=== PATIENT | female | born 1940 | race Caucasian/White ===

== ENCOUNTER → 2017-03-11 | Outpatient (CLI) | payer MEDICARE, OTHER ==
[2016-02-01 17:23] VITALS: BP 132/60
--- NOTE | 2017-03-11 15:11 | RAD ---
Indication right flank pain. Grayscale imaging targeted to the kidneys was performed. No similar imaging is available. The urinary bladder appeared grossly normal. There was no significant post void residual. The mid and distal abdominal aorta appeared normal. The more proximal abdominal aorta was obscured. The visualized inferior vena cava appeared unremarkable. The right kidney measures 8.6 x 3.6 x 4.1 cm. Other than being somewhat small the kidney appears unremarkable. No hydronephrosis or mass is seen. The left kidney measures 10.6 x 6.3 x 4.4 cm. No hydronephrosis or mass is seen. IMPRESSION: Somewhat small right kidney. No mass or hydronephrosis is seen associated with either kidney
== END | disposition home or self-care (01) ==
LOC: US 14:23
PROVIDERS: ATTEND Nurse Practitioner
DX: R10.9 Unspecified abdominal pain (principal)
CPT/HCPCS: 76770

== ENCOUNTER → 2018-04-01 | Outpatient (CLI) | payer MEDICARE, OTHER | END | disposition home or self-care (01) | LOC: KCIC MRI 09:04 | DX: M47.896 Other spondylosis, lumbar region (principal); M48.061 Spinal stenosis, lumbar region without neurogenic claudication; R26.2 Difficulty in walking, not elsewhere classified | CPT/HCPCS: 72148 ==

== ENCOUNTER → 2018-04-15 | Outpatient (CLI) | payer MEDICARE, OTHER | END | disposition home or self-care (01) | LOC: PNCL 07:12 | DX: M79.605 Pain in left leg (principal); M79.604 Pain in right leg; M54.5 Low back pain; I10 Essential (primary) hypertension; E11.9 Type 2 diabetes mellitus without complications; M19.90 Unspecified osteoarthritis, unspecified site; Z85.3 Personal history of malignant neoplasm of breast; Z90.10 Acquired absence of unspecified breast and nipple | CPT/HCPCS: G0463 ==

== ENCOUNTER → 2018-04-20 | Outpatient (CLI) | payer MEDICARE, OTHER ==
[2016-02-01 17:23] VITALS: BP 132/60
[~2018-04-20] MED LIST: ASPI81TA50 PO; ATOR10TA60 PO; BUPR300T4 PO; CA C1TAB38 PO; DULO60CA6 PO; GLIP5TAB10 PO; HYDR-2762 PO; LEVO88TA4 PO; LOSA100T6 PO; METF10003 PO; METO-247 PO; PRAM0.255 PO; SITA100T PO; TRAZ-85 PO; VITA150T PO
--- NOTE | 2018-04-20 17:38 | RAD ---
EXAM: Supine AP and lateral views of the Lumbar spine with upright flexion and extension views DATE: 04/20/2018 11:38 AM CLINICAL HISTORY: Spondylolisthesis, BACK PAIN COMPARISON: MRI 04/01/2019 FINDINGS: There are 5 nonrib-bearing lumbar type vertebral bodies. Small ribs are seen at T12. Mild L5-S1 intervertebral disc height loss.. Vertebral body heights are preserved. Multilevel endplate osteophytes are seen. Moderate facet degenerative changes are seen at L3-4 and below. Mild straightening of the normal lumbar lordosis. There is approximately 1.1 cm anterolisthesis of L4 on L5 on the flexion images and 8 mm anterolisthesis of L4 on L5 on the extension images. Normal bone density. Atherosclerotic vascular calcifications are seen. IMPRESSION: 1. Anterolisthesis of L4 on L5, measuring 1.1 cm on the flexion images and 8 mm on the extension images. 2. Multilevel degenerative changes of the lumbar spine as above Electronically signed by: Red Lomeli MD (04/20/2018 5:34 PM) [facility]
== END | disposition home or self-care (01) ==
LOC: RAD 11:13
PROVIDERS: ATTEND Neurological Surgery
DX: M47.896 Other spondylosis, lumbar region (principal); M43.16 Spondylolisthesis, lumbar region; I25.10 Atherosclerotic heart disease of native coronary artery without angina pectoris; M25.78 Osteophyte, vertebrae; M40.46 Postural lordosis, lumbar region; I10 Essential (primary) hypertension; E11.9 Type 2 diabetes mellitus without complications
CPT/HCPCS: 72110

== ENCOUNTER 2018-09-10 23:44 | Emergency (ER) | payer MEDICARE ==
[~2018-09-10] VITALS: Ht 152.4 cm; Wt 97.1 kg
[~2018-09-10 23:44] MED LIST changes: +FURO-69 PO; -HYDR-2762 PO; +HYDR-2765 PO; +LOSA-73 PO; +LOSA100T14 PO; -LOSA100T6 PO; -METF10003 PO; +METF10007 PO; +METO-269 PO
--- NOTE | 2018-09-11 00:13 | PHYS DOC ---
Past Medical History Past Medical History: Arthritis, Cancer, Diabetes-Type II, High Cholesterol, Hypertension, Other Additional Past Medical Histor: SPINAL STENOSIS, LYMPHOMER, RESTLESS LEG SYNDROME. BREAST CA Past Surgical History: Angioplasty, Appendectomy, Hysterectomy, Tonsillectomy, Other Additional Past Surgical Histo: R MASECTOMY, LUMPECTOMY, FIBROIDECTOMY Alcohol Use: None Drug Use: None Adult General Chief Complaint Chief Complaint: HIP PAIN HPI HPI Patient is a 78 year old female who presents with left hip pain. This is been present for the past 3-4 days. There is been no new trauma. Patient did receive cardiac catheter and stent on September 07 with a right femoral approach. Patient reports that the right side is doing fine. She is concerned that by increased weightbearing on the left due to protecting the right side, that this may have caused the issue. Patient is able to walk. Denies any numbness or tingling. Reports that she does get some relief with her hydrocodone. Patient was seen by her primary care physician as well as in urgent care tonight and they "did nothing." Weightbearing does seem to make the discomfort worse. Pain is moderate in intensity.[] Review of Systems Review of Systems Constitutional: Denies fever or chills [] Eyes: Denies change in visual acuity, redness, or eye pain [] HENT: Denies nasal congestion or sore throat [] Respiratory: Denies cough or shortness of breath [] Cardiovascular: No chest pain or palpitations[] GI: Denies abdominal pain, nausea, vomiting, bloody stools or diarrhea [] : Denies dysuria or hematuria [] Musculoskeletal: See history of present illness[] Integument: Denies rash or skin lesions [] Neurologic: Denies headache, focal weakness or sensory changes [] Endocrine: Denies polyuria or polydipsia [] All other systems were reviewed and found to be within normal limits, except as documented in this note. Allergies Allergies Allergies Coded Allergies Type Severity Reaction Last Updated Verified BHASKAR Inhibitors Allergy Intermediate 08/29/18 Yes amlodipine Allergy Intermediate 08/29/18 Yes rosuvastatin Allergy Intermediate 08/29/18 Yes Physical Exam Physical Exam Constitutional: Well developed, well nourished, no acute distress, non-toxic appearance. [] HENT: Normocephalic, atraumatic, bilateral external ears normal, oropharynx moist, no oral exudates, nose normal. [] Eyes: PERRLA, EOMI, conjunctiva normal, no discharge. [] Neck: Normal range of motion, no tenderness, supple, no stridor. [] Cardiovascular:Heart rate regular rhythm, no murmur [] Lungs & Thorax: Bilateral breath sounds clear to auscultation [] Abdomen: Bowel sounds normal, soft, no tenderness, no masses, no pulsatile masses. [] Skin: Warm, dry, no erythema, no rash. [] Back: No tenderness, no CVA tenderness. [] Extremities: Diffuse tenderness around the LEFT hip. Symmetric Active range of motion. No knee tenderness. Patient is distal neurovascularly intact. Pelvis is stable in 3 plains. no cyanosis, no clubbing, ROM intact, no edema. [] Neurologic: Alert and oriented X 3, normal motor function, normal sensory function, no focal deficits noted. [] Psychologic: Affect normal, judgement normal, mood normal. [] Current Patient Data Vital Signs Vital Signs Date Time Temp Pulse Resp B/P (MAP) Pulse Ox O2 Delivery O2 Flow Rate FiO2 09/11/18 00:09 99.4 103 24 142/74 (96) 93 Room Air 99.4 EKG EKG [] Radiology/Procedures Radiology/Procedures Left hip and pelvis x-ray shows no acute fracture or dislocation[] Course & Med Decision Making Course & Med Decision Making Pertinent Labs and Imaging studies reviewed. (See chart for details) ED course: Patient arrived, was placed in bed, tolerated exam well. Patient was transported to and from x-ray without any complications. After the return of the imaging findings, these were discussed with patient and family who voiced understanding. All questions were answered. Medical decision making: There is no evidence of fracture dislocation. No evidence of a DVT. Given that patient is currently on a blood thinning medication cannot add NSAIDs to her regimen. We will provide a short course of short-term narcotic pain medicine for this acute issue.[] Dragon Disclaimer Dragon Disclaimer This electronic medical record was generated, in whole or in part, using a voice recognition dictation system. Departure Departure Impression: Primary Impression: Left hip pain Disposition: 01 HOME, SELF-CARE Condition: GOOD Referrals: JENNA MARLOW MD (PCP) Follow-up in 2 days Patient Instructions: Hip Pain Additional Instructions: Follow-up with your regular doctor in 2 days. Apply warm compresses for 15 minutes at a time, at least 4 times a day. Return to the ER if worsening pain or any other concerns. Scripts Morphine Sulfate (MORPHINE SULFATE) 15 Mg Tablet 1 TAB PO BID, #20 TAB Prov: JIMBO ROSENTHAL DO 09/11/18 JIMBO ROSENTHAL DO Sep 11, 2018 00:13
[2018-09-11 01:10] VITALS: BP 152/65
[2018-09-11] MEDS ORDERED: MORP15TA PO (01:14)
--- NOTE | 2018-09-11 08:40 | RAD ---
HIP LEFT 2V WITH PELVIS History: LEFT HIP PAIN, SINCE 09/07/2018, NKI. Comparison: None are available Subchondral sclerosis at the pubic symphysis, greater on the right, with mild degenerative changes at the joint. Joint spaces at the right and left hip appear intact. There is no evidence of an acute fracture or aggressive bone destruction. Mild to moderate retained stool in the visualized colon. IMPRESSION: 1. Changes at the pubic symphysis suggest osteitis pubis or degenerative change. 2. No acute radiographic findings. Electronically signed by: Mahesh Hodgson MD (09/11/2018 8:35 AM) [facility]
== END 2018-09-11 01:25 | disposition home or self-care (01) ==
LOC: ER 23:44
DX: M25.552 Pain in left hip (principal); E11.9 Type 2 diabetes mellitus without complications; E78.00 Pure hypercholesterolemia, unspecified; I10 Essential (primary) hypertension; Z95.5 Presence of coronary angioplasty implant and graft; Z90.89 Acquired absence of other organs; Z90.710 Acquired absence of both cervix and uterus; Z88.8 Allergy status to other drugs, medicaments and biological substances
CPT/HCPCS: 73502; 99283

== ENCOUNTER → 2019-04-12 | Outpatient (CLI) | payer MEDICARE, OTHER ==
[~2019-04-12] MED LIST changes: +MORP15TA PO; +TRAZ-118 PO; -TRAZ-85 PO
--- NOTE | 2019-04-12 10:23 | CARD ---
MR#: [id number] Date of Study: 04/12/2019 Ordering Physician: CORI DINERO, Referring Physician: CORI DINERO, Tech: Marce Bobby VLADIMIR APPROVED REPORT EXAM: Two-dimensional and M-mode echocardiogram with Doppler and color Doppler. Other Information Quality : Good INDICATION Cardiac Disease: CAD 2D DIMENSIONS RVDd2.5 (2.9-3.5cm)Left Atrium(2D)3.7 (1.6-4.0cm) IVSd1.3 (0.7-1.1cm)Aortic Root(2D)2.3 (2.0-3.7cm) LVDd3.4 (3.9-5.9cm)LVOT Diameter2.1 (1.8-2.4cm) PWd1.0 (0.7-1.1cm)LVDs2.5 (2.5-4.0cm) FS (%) 27.7 %SV26.4 ml LVEF(%)54.8 (>50%) Aortic Valve AoV Peak Rah.136.8cm/sAoV VTI29.3cm AO Peak GR.7.5mmHgLVOT Peak Rah.85.7cm/s AO Mean GR.4mmHgAVA (VMAX)2.23cm2 MARA (VTI)2.70cm2 Mitral Valve MV E Iskcovvo97.5cm/sMV DECEL [id number] MV A Wwqfncfr890.4cm/sE/A Ratio0.6 Tricuspid Valve TR P. Ddeygzcf520jn/sRAP ZKBYILAH1hrRk TR Peak Gr.51pdIxDXNU30tpLs Pulmonary Vein S1 Ueoysdhs58.0cm/sD2 Gdvdbcrp07.4cm/s LEFT VENTRICLE The left ventricle is normal size. There is mild asymmetric septal hypertrophy. The left ventricular systolic function is normal and the ejection fraction is within normal range. The Ejection Fraction i s 55-60%. There is normal LV segmental wall motion. Transmitral Doppler flow pattern is Grade I-abnor mal relaxation pattern. RIGHT VENTRICLE The right ventricle is normal size. The right ventricular systolic function is normal. ATRIA The left atrium size is normal. The right atrium size is normal. The interatrial septum is intact wit h no evidence for an atrial septal defect or patent foramen ovale as noted on 2-D or Doppler imaging. AORTIC VALVE The aortic valve is calcified but opens well. Doppler and Color Flow revealed no significant aortic r egurgitation. There is no significant aortic valvular stenosis. MITRAL VALVE The mitral valve is calcified but opens well. Mitral annular calcification is mild. There is no evide nce of mitral valve prolapse. There is no mitral valve stenosis. Doppler and Color Flow revealed no m itral valve regurgitation noted. TRICUSPID VALVE The tricuspid valve is normal in structure and function. Doppler and Color Flow revealed physiologica l tricuspid regurgitation. The PA pressure was estimated at 22 mmHg. There is no tricuspid valve sten osis. PULMONIC VALVE The pulmonic valve is not well visualized. Doppler and Color Flow revealed mild pulmonic valvular reg urgitation. There is no pulmonic valvular stenosis. GREAT VESSELS The aortic root is normal in size. The ascending aorta is normal in size. The IVC is normal in size a nd collapses >50% with inspiration. PERICARDIAL EFFUSION There is no evidence of significant pericardial effusion. Critical Notification Critical Value: No <Conclusion> The left ventricular systolic function is normal and the ejection fraction is within normal range. Th e Ejection Fraction is 55-60%. There is normal LV segmental wall motion. Signed by : Cori Dinero, Electronically Approved : 04/12/2019 10:22:36
== END | disposition home or self-care (01) ==
LOC: ECHO 08:57
PROVIDERS: ATTEND Internal Medicine Cardiovascular Disease
DX: I08.8 Other rheumatic multiple valve diseases (principal); I25.10 Atherosclerotic heart disease of native coronary artery without angina pectoris
CPT/HCPCS: 93306

== ENCOUNTER → 2020-02-24 | Outpatient (CLI) | payer MEDICARE, OTHER ==
[~2020-02-24] MED LIST changes: -BUPR300T4 PO; +BUPR300T92 PO
--- NOTE | 2020-02-24 11:16 | CARD ---
MR#: [id number] Date of Study: 02/24/2020 Ordering Physician: CORI STEVENS, Referring Physician: CORI STEVENS, Tech: Penelope Yates APPROVED REPORT EXAM: Two-dimensional and M-mode echocardiogram with Doppler and color Doppler. Other Information Quality : AverageHR: 75bpm Technically limited study due to body habitus. INDICATION Cardiac Disease: CAD RISK FACTORS Hypertension Hyperlipidemia Diabetes 2D DIMENSIONS RVDd2.8 (2.9-3.5cm)Left Atrium(2D)3.7 (1.6-4.0cm) IVSd1.1 (0.7-1.1cm)LVDd4.0 (3.9-5.9cm) LVOT Diameter2.0 (1.8-2.4cm)PWd0.9 (0.7-1.1cm) LVDs2.7 (2.5-4.0cm)FS (%) 31.4 % SV41.4 mlLVEF(%)59.9 (>50%) Aortic Valve AoV Peak Rah.127.1cm/sAoV VTI28.9cm AO Peak GR.6.5mmHgLVOT Peak Rah.84.6cm/s LVOT VTI 20.53cmAO Mean GR.4mmHg MARA (VMAX)1.34ez7LZM (VTI)2.28cm2 Mitral Valve MV E Vyemrdbx00.5cm/sMV DECEL KDPP213oj MV A Klqzucyh11.4cm/sMV E Mean Gr.2mmHg MV JGN66teR/A Ratio0.7 MVA (PHT)3.39cm2 TDI E/Lateral E'7.6E/Medial E'8.3 Pulmonary Valve PV Peak Nhastwpc85.0cm/sPV Peak Grad.4mmHg Tricuspid Valve TR P. Yoccoowg268ty/sRAP RJRGWUDF6ncOq TR Peak Gr.93ljEaNNLJ42bnPo Pulmonary Vein S1 Wfturgjz55.8cm/sD2 Qcwuhvfs73.6cm/s PVa gkextcga340psqb LEFT VENTRICLE The left ventricle is normal size. There is normal left ventricular wall thickness. The left ventricu lar systolic function is normal and the ejection fraction is within normal range. The Ejection Fracti on is 55%. There is normal LV segmental wall motion. Transmitral Doppler flow pattern is Grade I-abno rmal relaxation pattern. RIGHT VENTRICLE The right ventricle is normal size. There is normal right ventricular wall thickness. The right ventr icular systolic function is normal. ATRIA The left atrium size is normal. The right atrium size is normal. The interatrial septum is intact wit h no evidence for an atrial septal defect or patent foramen ovale as noted on 2-D or Doppler imaging. AORTIC VALVE The aortic valve is normal in structure and function. Cannot rule out prior bioprosthetic aortic valv e. Doppler and Color Flow revealed no significant aortic regurgitation. There is no significant aorti c valvular stenosis. MITRAL VALVE The mitral valve is normal in structure and function. There is no evidence of mitral valve prolapse. There is no mitral valve stenosis. Doppler and Color-flow revealed trace mitral regurgitation. TRICUSPID VALVE The tricuspid valve is normal in structure and function. Doppler and Color Flow revealed trace tricus pid regurgitation with an estimated PAP of 39 mmHg. There is no tricuspid valve stenosis. PULMONIC VALVE The pulmonary valve is normal in structure and function. Doppler and Color Flow revealed trace to mil d pulmonic valvular regurgitation. There is no pulmonic valvular stenosis. GREAT VESSELS The aortic root is normal in size. The ascending aorta is normal in size. The IVC is normal in size a nd collapses >50% with inspiration. PERICARDIAL EFFUSION There is no evidence of significant pericardial effusion. Critical Notification Critical Value: No <Conclusion> The left ventricular systolic function is normal and the ejection fraction is within normal range. Th e Ejection Fraction is 55%. There is normal LV segmental wall motion. The aortic valve is normal in structure and function. Cannot rule out prior bioprosthetic aortic valv e. Doppler and Color Flow revealed trace tricuspid regurgitation with an estimated PAP of 39 mmHg. Signed by : Cori Stevens, Electronically Approved : 02/24/2020 11:15:25
== END | disposition home or self-care (01) ==
LOC: ECHO 07:49
PROVIDERS: ATTEND Internal Medicine Cardiovascular Disease
DX: I37.1 Nonrheumatic pulmonary valve insufficiency (principal); I25.10 Atherosclerotic heart disease of native coronary artery without angina pectoris
CPT/HCPCS: 93306

== ENCOUNTER 2020-09-07 22:17 | Inpatient (IN) | payer MEDICARE, OTHER ==
[~2020-09-07] VITALS: Ht 152.4 cm; Wt 94.1 kg
[2020-09-07] MEDS ORDERED: IV NORMAL SALINE 1000ML BAG 1,000 ML IV ONE (23:45)
[2020-09-07] MEDS ORDERED: ASPIRIN ENTERIC COATED 325 MG TABLET.DR. PO ONE (23:45)
[2020-09-08] VITALS (7 sets, daily range): BP systolic 116–176; BP diastolic 65–93
--- NOTE | 2020-09-08 00:57 | PHYS DOC ---
Past Medical History Past Medical History: Arthritis, Cancer, Diabetes-Type II, High Cholesterol, Hypertension, Hypothyroid, Other Additional Past Medical Histor: SPINAL STENOSIS, LYMPHOMER, RESTLESS LEG SYNDROME. BREAST CA Past Surgical History: Angioplasty, Appendectomy, Hysterectomy, Tonsillectomy, Other Additional Past Surgical Histo: R MASECTOMY, LUMPECTOMY, FIBROIDECTOMY Past Surgical History Partial thyroidectomy Smoking Status: Never Smoker Alcohol Use: None Drug Use: None General Adult EDM: Chief Complaint: SHORTNESS OF BREATH HPI: HPI: 80-year-old female presents with report of shortness of breath that started at 1400 today while organizing things in her house. Patient denies any fever or chills. Denies cough. Denies nasal congestion. Denies known sick contacts. Denies known exposure to COVID-19. Patient does report some palpitations. Patient does report history of partial thyroidectomy. Reports has been compliant with taking her thyroid medication. Review of Systems: Review of Systems: Constitutional: Denies fever or chills Eyes: Denies redness or eye pain HENT: Denies nasal congestion or sore throat Respiratory: Denies cough; reports shortness of breath Cardiovascular: Denies chest pain; reports palpitations GI: Denies abdominal pain, nausea, or vomiting : Denies dysuria or hematuria Musculoskeletal: Denies back pain or joint pain Integument: Denies rash or skin lesions Neurologic: Denies headache, focal weakness or sensory changes Complete systems were reviewed and found to be within normal limits, except as documented in this note. Current Medications: Current Medications Medications (Trade) Dose Ordered Sig/Kevin Start Time Stop Time Status Last Admin Dose Admin Aspirin (Ecotrin) 325 mg 1X ONCE 09/07/20 23:45 09/07/20 23:46 DC 09/08/20 00:40 325 MG Sodium Chloride 1,000 ml @ 1,000 mls/hr 1X ONCE 09/07/20 23:45 09/08/20 00:44 DC 09/08/20 00:40 1,000 MLS/HR Allergies: Allergies: Allergies Coded Allergies Type Severity Reaction Last Updated Verified BHASKAR Inhibitors Allergy Intermediate 08/29/18 Yes amlodipine Allergy Intermediate 08/29/18 Yes rosuvastatin Allergy Intermediate 08/29/18 Yes Physical Exam: PE: Constitutional: Well developed, well nourished, no acute distress, non-toxic appearance HENT: Normocephalic, atraumatic Eyes: Conjunctiva normal, no discharge Neck: Normal range of motion, no tenderness, supple Lungs & Thorax: No respiratory distress, equal chest rise and fall Cardiology: Tachycardia, bilateral radial pulses +2 Abdomen: Soft, no tenderness Skin: Warm, dry, no erythema, no rash Extremities: No tenderness, ROM intact, no edema Neurologic: Alert and oriented X 3, normal motor function, normal sensory function, no focal deficits noted Psychologic: Affect anxious, judgment normal Current Patient Data: Vital Signs: Vital Signs Date Time Temp Pulse Resp B/P (MAP) Pulse Ox O2 Delivery O2 Flow Rate FiO2 09/07/20 23:00 98.3 122 20 118/78 (91) 96 Room Air 98.3 EKG: EKG: @0045 Sinus tachycardia at 122bpm, NO ST elevation, QRS 92ms, QT/QTc 316/451ms Radiology/Procedures: Radiology/Procedures: PROCEDURE: CT ANGIOGRAPHY CHEST RS Compliance Statement: One or more of the following individualized dose reduction techniques were utilized for this examination: 1. Automated exposure control 2. Adjustment of the mA and/or kV according to patient size 3. Use of iterative reconstruction technique CTA CHEST 09/08/2020 2:35 AM Indication: Shortness of air, elevated d-dimer COMPARISON: None available. TECHNIQUE: Multiple axial CT images of the chest were obtained after intravenous administration of 100 cc Omnipaque 350. Coronal and sagittal reformats are provided. Maximum intensity projection images are provided. FINDINGS: Right thyroid gland is normal. The thyroid gland is either diminutive or absent. Precarinal lymph node measures 9 mm. No pathologically enlarged thoracic lymph nodes are identified. Heart size is borderline enlarged. Mild three-vessel coronary artery vascular calcifications are present. Evaluation of the pulmonary arterial system is limited by respiratory motion. This symptoms evaluation of the right upper lobe pulmonary arteries. The central pulmonary artery, main pulmonary arteries and bilateral lower lobe pulmonary arteries are widely patent. Lingula and left upper lobe pulmonary arteries are patent without filling defects to suggest acute or chronic pulmonary emboli. Respiratory motion limits evaluation of the lungs. There is mild pulmonary vascular congestion. No definite solid noncalcified pulmonary nodule. No pleural effusions or pneumothorax. Mild gallbladder wall calcification is identified. Simple cyst identified in the super pole left kidney measuring 9 mm. No suspicious osseous abnormality. IMPRESSION: 1. No evidence for acute or chronic pulmonary embolism. Evaluation of the right upper lobe pulmonary arteries limited by motion artifact. 2. Evaluation of the lungs limited by motion. There is mild pulmonary vascular congestion and mild cardiomegaly as may be seen with congestive heart failure. No focal airspace consolidation. Electronically signed by: Ingrid Aviles MD (09/08/2020 3:10 AM) [facility] Course & Med Decision Making: Course & Med Decision Making Pertinent Labs and Imaging studies reviewed. (See chart for details) Patient presents with shortness of breath that started today at 1400. Does appear to have some anxiety component. Anxiety addressed. IV fluid hydration given. Labs obtained and posted to chart. CTA chest without signs of PE. Cannot exclude COVID-19. Covid precautions in place. Covid testing pending. Patient did continue to be tachycardic up into the 120s to 130s despite IV fluid hydration. Lactic acid significantly elevated. Patient requiring admission for further evaluation and treatment. Discussed with Dr. Gutiérrez (hospitalist) who is in agreement with admission. Discussed findings and plan with patient, who acknowledges understanding and agreement. COVID-19 CRITERIA: The patient was evaluated during the global COVID-19 pandemic, and that diagnosis was suspected/considered upon their initial presentation. Their evaluation, treatment and testing was consistent with current guidelines for patients who present with complaints or symptoms that may be related to COVID-19. Dragon Disclaimer: Seferino Disclaimer: This electronic medical record was generated, in whole or in part, using a voice recognition dictation system. Departure Departure Impression: Primary Impression: Shortness of breath Additional Impressions: Lactic acidosis Sinus tachycardia Suspected 2019 novel coronavirus infection Disposition: ADMITTED INPT THIS HOSP Admitting Physician: LALA (Brock) Condition: STABLE Referrals: JENNA MARLOW MD (PCP) COVID-19 Assessment: COVID-19 Patient Risks: Age 65 or older: Yes Sign of co-morbidity: Yes Exp to person + for COVID: No Exp to PUI: No Travel from affected area: No Lower respiratory symptoms: Yes Fever: No Other: Yes PPE Use: Full PPE with N95 mask or PAPR: Yes Critical Care Time Critical care time was 30 minutes which includes time at bedside, spent in discussion of patient's care with specialists and/or family members, with interpretation of laboratory and/or radiological studies and is exclusive of procedures. LIO MORA DO Sep 08, 2020 00:57
[2020-09-08 00:58] LABS: BASO # 0.1 x10^3/uL (0.0-0.2); BASO % 1 % (0-3); EOS # 0.3 x10^3/uL (0.0-0.7); EOS % 3 % (0-3); HEMATOCRIT 40.2 % (36.0-47.0); HEMOGLOBIN 13.5 g/dL (12.0-15.5); LYMPH # 2.1 x10^3/uL (1.0-4.8); LYMPH % 26 % (24-48); MEAN CORPUSCULAR HEMOGLOBIN 33 pg (25-35); MEAN CORPUSCULAR HGB CONC 34 g/dL (31-37); MEAN CORPUSCULAR VOLUME 97 fL (79-100); MONO # 0.7 x10^3/uL (0.0-1.1); MONO % 9 % (0-9); NEUT % 61 % (31-73); PLATELET COUNT 245 x10^3/uL (140-400); RED BLOOD COUNT 4.16 x10^6/uL (3.50-5.40); RED CELL DISTRIBUTION WIDTH 13.3 % (11.5-14.5); WHITE BLOOD COUNT 8.2 x10^3/uL (4.0-11.0)
[2020-09-08 01:13] LABS: CALCIUM 9.5 mg/dL (8.5-10.1); CREATININE 1.2 mg/dL (0.6-1.0); GFR 43.3; POTASSIUM 4.2 mmol/L (3.5-5.1)
[2020-09-08 01:19] LABS: ALBUMIN 3.7 g/dL (3.4-5.0); MAGNESIUM 1.9 mg/dL (1.8-2.4); TOTAL BILIRUBIN 0.4 mg/dL (0.2-1.0); TOTAL PROTEIN 7.4 g/dL (6.4-8.2)
[2020-09-08 01:30] LABS: FREE T4 0.86 ng/dL (0.76-1.46); THYROID STIM HORMONE (TSH) 5.754 uIU/mL (0.358-3.74)
[2020-09-08 02:30] LABS: BILIRUBIN,URINE NEGATIVE (NEG); CLARITY,URINE CLEAR; COLOR,URINE YELLOW; NITRITE,URINE NEGATIVE (NEG); PH,URINE 6.5 (<5.0-8.0); PROTEIN,URINE NEGATIVE (NEG-TRACE); UROBILINOGEN,URINE 0.2 mg/dL (0.2 mg/dL)
[2020-09-08] MEDS ORDERED: IV NORMAL SALINE 1000ML BAG 1,000 ML IV ONE ×2 (02:30→04:00)
[2020-09-08] MEDS ORDERED: CONTRAST GIVEN. MC PRN (02:45)
[2020-09-08 02:56] LABS: BACTERIA,URINE FEW /HPF (0-FEW)
[2020-09-08] MEDS ORDERED: IOHEXOL 350 MG/ML 100 ML VIAL. IV ONE (03:00)
--- NOTE | 2020-09-08 03:02 | EKG ---
[facility] [address] [place] [address] Test Date: 2020-09-08 Test Time: 00:45:59 Pat Name: GALDINO FOREMAN Department: Room: Gender: F Greige Mender: : 1940 Requested By: LIO MORA Order Number: [id number] Reading MD: Fazal Stevens MD Measurements Intervals [place] Rate: 122 P: -8 SC: 152 QRS: -24 QRSD: 92 T: 48 QT: 316 QTc: 451 Interpretive Statements SINUS TACHYCARDIA CONSIDER PRIOR INFERIOR INFARCT. Electronically Signed On 09-11-2020 6:55:04 GANTRY RIGGER by Fazal Stevens MD
--- NOTE | 2020-09-08 03:12 | RAD ---
PQRS Compliance Statement: One or more of the following individualized dose reduction techniques were utilized for this examinat ion: 1. Automated exposure control 2. Adjustment of the mA and/or kV according to patient size 3. Use of iterative reconstruction technique CTA CHEST 09/08/2020 2:35 AM Indication: Shortness of air, elevated d-dimer COMPARISON: None available. TECHNIQUE: Multiple axial CT images of the chest were obtained after intravenous administration of 10 0 cc Omnipaque 350. Coronal and sagittal reformats are provided. Maximum intensity projection images are provided. FINDINGS: Right thyroid gland is normal. The thyroid gland is either diminutive or absent. Precarinal lymph nod e measures 9 mm. No pathologically enlarged thoracic lymph nodes are identified. Heart size is border line enlarged. Mild three-vessel coronary artery vascular calcifications are present. Evaluation of t he pulmonary arterial system is limited by respiratory motion. This symptoms evaluation of the right upper lobe pulmonary arteries. The central pulmonary artery, main pulmonary arteries and bilateral lo wer lobe pulmonary arteries are widely patent. Lingula and left upper lobe pulmonary arteries are pat ent without filling defects to suggest acute or chronic pulmonary emboli. Respiratory motion limits e valuation of the lungs. There is mild pulmonary vascular congestion. No definite solid noncalcified p ulmonary nodule. No pleural effusions or pneumothorax. Mild gallbladder wall calcification is identif ied. Simple cyst identified in the super pole left kidney measuring 9 mm. No suspicious osseous abnor mality. IMPRESSION: 1. No evidence for acute or chronic pulmonary embolism. Evaluation of the right upper lobe pulmonary arteries limited by motion artifact. 2. Evaluation of the lungs limited by motion. There is mild pulmonary vascular congestion and mild ca rdiomegaly as may be seen with congestive heart failure. No focal airspace consolidation. Electronically signed by: Ingrid Aviles MD (09/08/2020 3:10 AM) [facility]
[2020-09-08] MEDS ORDERED: DEXTROSE 50% 25 GM / 50ML DISP.SYRIN. IV PRN ×2 (04:00→12:15)
--- NOTE | 2020-09-08 07:53 | PDOC1 ---
History and Physical Date of Service: DOS: DATE: 09/08/20 TIME: 07:50 Chief Complaint: Chief Complain: Shortness of breath and palpitations History of Present Illness: HPI: 80-year-old female presents with report of shortness of breath that started at 1400 today while organizing things in her house. Patient denies any fever or chills. Denies cough. Denies nasal congestion. Denies known sick contacts. Denies known exposure to COVID-19. Patient does report some palpitations. Patient does report history of partial thyroidectomy. Reports has been compliant with taking her thyroid medication. Past Medical/Surgical History: PMH/PSH: Past Medical History: Arthritis, Cancer, Diabetes-Type II, High Cholesterol, Hypertension, Hypothyroid, SPINAL STENOSIS, LYMPHOMER, RESTLESS LEG SYNDROME. BREAST CA Past Surgical History: Angioplasty, Appendectomy, Hysterectomy, Tonsillectomy, R MASECTOMY, LUMPECTOMY, FIBROIDECTOMY, Partial thyroidectomy Allergies: Allergies: Coded Allergies: BHASKAR Inhibitors (Verified Allergy, Intermediate, 08/29/18) amlodipine (Verified Allergy, Intermediate, 08/29/18) rosuvastatin (Verified Allergy, Intermediate, 08/29/18) muscle cramps Family History: Family History: Reviewed with no relevant findings Social History: Social History: Smoking Status: Never Smoker Alcohol Use: None Drug Use: None Current Medications: Current Medications Current Medications Sodium Chloride 1,000 ml @ 1,000 mls/hr 1X ONCE IV Last administered on 09/08/20at 00:40; Start 09/07/20 at 23:45; Stop 09/08/20 at 00:44; Status DC Aspirin (Ecotrin) 325 mg 1X ONCE PO Last administered on 09/08/20at 00:40; Start 09/07/20 at 23:45; Stop 09/07/20 at 23:46; Status DC Sodium Chloride 1,000 ml @ 125 mls/hr 1X ONCE IV Last administered on 09/08/20at 03:30; Start 09/08/20 at 02:30; Stop 09/08/20 at 10:29 Iohexol (Omnipaque 350 Mg/ml) 100 ml 1X ONCE IV Last administered on 09/08/20at 03:05; Start 09/08/20 at 03:00; Stop 09/08/20 at 03:01; Status DC Info (CONTRAST GIVEN -- Rx MONITORING) 1 each PRN DAILY PRN MC SEE COMMENTS; Start 09/08/20 at 02:45; Stop 09/10/20 at 02:44 Lorazepam (Ativan Inj) 1 mg 1X ONCE IVP Last administered on 09/08/20at 05:47; Start 09/08/20 at 04:30; Stop 09/08/20 at 04:31; Status DC Insulin Human Lispro (HumaLOG) 0-5 UNITS TIDWMEALS SQ ; Start 09/08/20 at 08:00 Dextrose (Dextrose 50%-Water Syringe) 12.5 gm PRN Q15MIN PRN IV SEE COMMENTS; Start 09/08/20 at 04:00 Sodium Chloride 1,000 ml @ 100 mls/hr 1X ONCE IV ; Start 09/08/20 at 04:00; Stop 09/08/20 at 04:10; Status DC Active Scripts Active Morphine Sulfate 15 Mg Tablet 1 Tab PO BID Reported Cozaar (Losartan Potassium) 50 Mg Tablet 50 Mg PO DAILY Cozaar (Losartan Potassium) 50 Mg Tablet 50 Mg PO DAILY Toprol Xl (Metoprolol Succinate) 50 Mg Tab.er.24h 50 Mg PO DAILY Super B Complex (Vitamin B Complex & Vit C No.4) 150 Mg Tablet 150 Mg PO DAILY Calcium + D Soft Chewable Tab (Ca Carbonate/Vitamin D3/Vit K) 1 Each Tab.chew 2 Each PO DAILY Januvia (Sitagliptin Phosphate) 100 Mg Tablet 1 Tab PO DAILY Bupropion Xl (Bupropion Hcl) 300 Mg Tab.er.24h 1 Tab PO DAILY Aspir-Low (Aspirin) 81 Mg Tablet. 1 Tab PO DAILY Mirapex (Pramipexole Di-Hcl) 0.25 Mg Tablet 1 Tab PO QHS Hydrocodone-Apap 7.5-325 (Hydrocodone Bit/Acetaminophen) 1 Each Tablet 1 Tab PO PRN Q6HRS PRN Trazodone Hcl 50 Mg Tablet 50 Mg PO DAILY Glipizide 5 Mg Tablet 5 Mg PO DAILY Atorvastatin Calcium 10 Mg Tablet 1 Tab PO DAILY Cymbalta (Duloxetine Hcl) 60 Mg Capsule. 1 Cap PO BID Metformin Hcl 1,000 Mg Tablet 1,000 Mg PO DAILYWBKFT Levothyroxine Sodium 88 Mcg Tablet 1 Tab PO DAILY ROS: Review of Systems Review of System REVIEW OF SYSTEMS: GENERAL: Denies weakness SKIN: No bruising, hair changes or rashes. EYES: No blurred, double or loss of vision. NOSE AND THROAT: No history of nosebleeds, hoarseness or sore throat. HEART: No history of palpitations, chest pain or shortness of breath on exertion. LUNGS: Denies cough, hemoptysis, wheezing or shortness of breath. GASTROINTESTINAL: Denies changes in appetite, nausea, vomiting, diarrhea or constipation. GENITOURINARY: No history of frequency, urgency, hesitancy or nocturia. NEUROLOGIC: Denies history of numbness, tingling, or tremor. PSYCHIATRIC: No history of panic, anxiety or depression. ENDOCRINE: No history of heat or cold intolerance, polyuria or polydipsia. EXTREMITIES: Denies joint pain, pain on walking or stiffness. Physical Exam: Vital Signs: Vital Signs Date Time Temp Pulse Resp B/P (MAP) Pulse Ox O2 Delivery O2 Flow Rate FiO2 09/08/20 06:27 97.6 119 22 136/90 (105) 99 Room Air 97.6 Physcial Exam: GEN: No apparent distress. Alert and oriented HEENT: Normal cephalic, atraumatic, external auditory canals are patent EYES: Extraocular muscles are intact, pupil are equally round and reactive to light and accommodation MUSCULOSKELETAL: Well developed , well nourished, good range of motion ENDOCRINE: No thyromegaly was palpated LYMPHATICS: No cervical chain or axillary nodes were noted HEMATOPOIETIC: No bruising NECK: Supple, no JVD, no thyromegaly was noted LUNGS: Clear to auscultation in all lung sanders without rhonchi or wheezing HEART: RRR, S!, S2 present. Peripheral pulses intact, no obvious murmurs noted ABDOMEN: Soft, nontender. Positive bowel sounds, no organomegaly, normal bowel sounds EXTREMITIES: Without clubbing, cyanosis, or edema. Pedal pulses intact. Negative Homans sign NEUROLOGIC: Normal speech and tone. A&O x 3, moves all extremities, no obvious focal deficits PSYCHIATRIC: Normal affect, normal mood. Stable SKIN: No ulcerations or rashes, good skin turgor, no jaundice VASCULAR: Good capillary refill, neurovascular bundle appears to be intact Labs: Labs: Laboratory Tests Test 09/08/20 00:35 09/08/20 02:08 09/08/20 05:25 White Blood Count 8.2 x10^3/uL (4.0-11.0) Red Blood Count 4.16 x10^6/uL (3.50-5.40) Hemoglobin 13.5 g/dL (12.0-15.5) Hematocrit 40.2 % (36.0-47.0) Mean Corpuscular Volume 97 fL (79-100) Mean Corpuscular Hemoglobin 33 pg (25-35) Mean Corpuscular Hemoglobin Concent 34 g/dL (31-37) Red Cell Distribution Width 13.3 % (11.5-14.5) Platelet Count 245 x10^3/uL (140-400) Neutrophils (%) (Auto) 61 % (31-73) Lymphocytes (%) (Auto) 26 % (24-48) Monocytes (%) (Auto) 9 % (0-9) Eosinophils (%) (Auto) 3 % (0-3) Basophils (%) (Auto) 1 % (0-3) Neutrophils # (Auto) 5.0 x10^3/uL (1.8-7.7) Lymphocytes # (Auto) 2.1 x10^3/uL (1.0-4.8) Monocytes # (Auto) 0.7 x10^3/uL (0.0-1.1) Eosinophils # (Auto) 0.3 x10^3/uL (0.0-0.7) Basophils # (Auto) 0.1 x10^3/uL (0.0-0.2) D-Dimer (Ciera) 1.39 ug/mlFEU (0.00-0.50) Sodium Level 140 mmol/L (136-145) Potassium Level 4.2 mmol/L (3.5-5.1) Chloride Level 102 mmol/L (98-107) Carbon Dioxide Level 26 mmol/L (21-32) Anion Gap 12 (6-14) Blood Urea Nitrogen 18 mg/dL (7-20) Creatinine 1.2 mg/dL (0.6-1.0) Estimated GFR (Cockcroft-Gault) 43.3 BUN/Creatinine Ratio 15 (6-20) Glucose Level 152 mg/dL (70-99) Lactic Acid Level 3.5 mmol/L (0.4-2.0) 2.1 mmol/L (0.4-2.0) Calcium Level 9.5 mg/dL (8.5-10.1) Magnesium Level 1.9 mg/dL (1.8-2.4) Total Bilirubin 0.4 mg/dL (0.2-1.0) Aspartate Amino Transf (AST/SGOT) 23 U/L (15-37) Alanine Aminotransferase (ALT/SGPT) 30 U/L (14-59) Alkaline Phosphatase 94 U/L (46-116) Creatine Kinase 90 U/L (26-192) Creatine Kinase MB (Mass) 0.8 ng/mL (0.0-3.6) Creatine Kinase MB Relative Index 0.9 % (0-4) Troponin I Quantitative < 0.017 ng/mL (0.000-0.055) < 0.017 ng/mL (0.000-0.055) [id number]-[id number]-Type Natriuretic Peptide 128 pg/mL (0-449) Total Protein 7.4 g/dL (6.4-8.2) Albumin 3.7 g/dL (3.4-5.0) Albumin/Globulin Ratio 1.0 (1.0-1.7) Thyroid Stimulating Hormone (TSH) 5.754 uIU/mL (0.358-3.74) Free Thyroxine 0.86 ng/dL (0.76-1.46) Free Triiodothyronine (T3) pg/mL 2.28 pg/mL (2.18-3.98) Urine Collection Type Unknown Urine Color Yellow Urine Clarity Clear Urine pH 6.5 (<5.0-8.0) Urine Specific Eunice <=1.005 (1.000-1.030) Urine Protein Negative mg/dL (NEG-TRACE) Urine Glucose (UA) Negative mg/dL (NEG) Urine Ketones (Stick) Negative mg/dL (NEG) Urine Blood Negative (NEG) Urine Nitrite Negative (NEG) Urine Bilirubin Negative (NEG) Urine Urobilinogen Dipstick 0.2 mg/dL (0.2 mg/dL) Urine Leukocyte Esterase Small (NEG) Urine RBC 1-2 /HPF (0-2) Urine WBC 1-4 /HPF (0-4) Urine Squamous Epithelial Cells Few /LPF Urine Bacteria Few /HPF (0-FEW) Urine Mucus Slight /LPF Laboratory Tests Test 09/08/20:35 09/08/20 02:08 09/08/20 05:25 White Blood Count 8.2 x10^3/uL (4.0-11.0) Red Blood Count 4.16 x10^6/uL (3.50-5.40) Hemoglobin 13.5 g/dL (12.0-15.5) Hematocrit 40.2 % (36.0-47.0) Mean Corpuscular Volume 97 fL (79-100) Mean Corpuscular Hemoglobin 33 pg (25-35) Mean Corpuscular Hemoglobin Concent 34 g/dL (31-37) Red Cell Distribution Width 13.3 % (11.5-14.5) Platelet Count 245 x10^3/uL (140-400) Neutrophils (%) (Auto) 61 % (31-73) Lymphocytes (%) (Auto) 26 % (24-48) Monocytes (%) (Auto) 9 % (0-9) Eosinophils (%) (Auto) 3 % (0-3) Basophils (%) (Auto) 1 % (0-3) Neutrophils # (Auto) 5.0 x10^3/uL (1.8-7.7) Lymphocytes # (Auto) 2.1 x10^3/uL (1.0-4.8) Monocytes # (Auto) 0.7 x10^3/uL (0.0-1.1) Eosinophils # (Auto) 0.3 x10^3/uL (0.0-0.7) Basophils # (Auto) 0.1 x10^3/uL (0.0-0.2) D-Dimer (Ciera) 1.39 ug/mlFEU (0.00-0.50) Sodium Level 140 mmol/L (136-145) Potassium Level 4.2 mmol/L (3.5-5.1) Chloride Level 102 mmol/L (98-107) Carbon Dioxide Level 26 mmol/L (21-32) Anion Gap 12 (6-14) Blood Urea Nitrogen 18 mg/dL (7-20) Creatinine 1.2 mg/dL (0.6-1.0) Estimated GFR (Cockcroft-Gault) 43.3 BUN/Creatinine Ratio 15 (6-20) Glucose Level 152 mg/dL (70-99) Lactic Acid Level 3.5 mmol/L (0.4-2.0) 2.1 mmol/L (0.4-2.0) Calcium Level 9.5 mg/dL (8.5-10.1) Magnesium Level 1.9 mg/dL (1.8-2.4) Total Bilirubin 0.4 mg/dL (0.2-1.0) Aspartate Amino Transf (AST/SGOT) 23 U/L (15-37) Alanine Aminotransferase (ALT/SGPT) 30 U/L (14-59) Alkaline Phosphatase 94 U/L (46-116) Creatine Kinase 90 U/L (26-192) Creatine Kinase MB (Mass) 0.8 ng/mL (0.0-3.6) Creatine Kinase MB Relative Index 0.9 % (0-4) Troponin I Quantitative < 0.017 ng/mL (0.000-0.055) < 0.017 ng/mL (0.000-0.055) [id number]-Type Natriuretic Peptide 128 pg/mL (0-449) Total Protein 7.4 g/dL (6.4-8.2) Albumin 3.7 g/dL (3.4-5.0) Albumin/Globulin Ratio 1.0 (1.0-1.7) Thyroid Stimulating Hormone (TSH) 5.754 uIU/mL (0.358-3.74) Free Thyroxine 0.86 ng/dL (0.76-1.46) Free Triiodothyronine (T3) pg/mL 2.28 pg/mL (2.18-3.98) Urine Collection Type Unknown Urine Color Yellow Urine Clarity Clear Urine pH 6.5 (<5.0-8.0) Urine Specific Eunice <=1.005 (1.000-1.030) Urine Protein Negative mg/dL (NEG-TRACE) Urine Glucose (UA) Negative mg/dL (NEG) Urine Ketones (Stick) Negative mg/dL (NEG) Urine Blood Negative (NEG) Urine Nitrite Negative (NEG) Urine Bilirubin Negative (NEG) Urine Urobilinogen Dipstick 0.2 mg/dL (0.2 mg/dL) Urine Leukocyte Esterase Small (NEG) Urine RBC 1-2 /HPF (0-2) Urine WBC 1-4 /HPF (0-4) Urine Squamous Epithelial Cells Few /LPF Urine Bacteria Few /HPF (0-FEW) Urine Mucus Slight /LPF Images: Images CHEST CTA IMPRESSION: 1. No evidence for acute or chronic pulmonary embolism. Evaluation of the right upper lobe pulmonary arteries limited by motion artifact. 2. Evaluation of the lungs limited by motion. There is mild pulmonary vascular congestion and mild cardiomegaly as may be seen with congestive heart failure. No focal airspace consolidation. Assessment/Plan Assessment/Plan Acute respiratory distress and palpitations concerning for non-STEMI Investigation for COVID-19 Subclinical hypothyroidism Elevated D-dimer Lactic acidosis Admit to medicine for further management Cardiology consult for palpitations and tachycardia Continue IV thiamine and vitamin C IV 4 mg dexamethasone Daily if Covid returns positive Titrate O2 supplementation to maintain O2 saturation greater than 92% Continue telemetry monitoring Lovenox for DVT prophylaxis Protonix GI prophylaxis ADA diet Full code Discussed with RN and SW Disposition pending cardiac evaluation Surrogate decision maker is the or son Justifications for Admission Other Justification DEMARIO LUEVANO MD Sep 08, 2020 07:53
[2020-09-08] MEDS ORDERED: VENL150C6 PO (08:19)
[2020-09-08] MEDS ORDERED: MUPI22OI2 TP (08:19)
[2020-09-08] MEDS ORDERED: NEOM10DR32 AS (08:19)
[2020-09-08] MEDS ORDERED: EZET10TA48 PO (08:19)
[2020-09-08] MEDS: INSULIN LISPRO 300 UNITS/3 ML VIAL. SQ SCH ×3 (09:27→17:19)
[2020-09-08] MEDS ORDERED: DOCUSATE SODIUM 100 MG CAPSULE. PO PRN (12:15)
[2020-09-08] MEDS ORDERED: ACETAMINOPHEN 325 MG TABLET. PO PRN (12:15)
[2020-09-08] MEDS ORDERED: ONDANSETRON PF 4 MG/2 ML VIAL. IVP PRN (12:15)
[2020-09-08] MEDS ORDERED: SENNOSIDES 8.6 MG TABLET PO PRN (12:15)
[2020-09-08] MEDS ORDERED: ENOXAPARIN 40 MG/0.4 ML SYRINGE. SQ SCH (13:00)
[2020-09-08] MEDS ORDERED: DULoxetine HCL 30 MG CAPSULE.DR PO SCH (13:00)
[2020-09-08] MEDS: EZETIMIBE 10 MG TABLET. PO SCH (13:10)
[2020-09-08] MEDS: ASPIRIN ENTERIC COATED 81 MG TABLET.DR. PO SCH (13:10)
[2020-09-08] MEDS: VITAMIN B COMPLEX TABLET. PO SCH (13:10)
[2020-09-08] MEDS: METOPROLOL SUCC 24HR ER 25 MG TAB.ER.24H. PO SCH (13:11)
[2020-09-08] MEDS: LEVOTHYROXINE 88 MCG TABLET PO SCH (13:12)
[2020-09-08] MEDS: VENLAFAXINE 50 MG TABLET. PO SCH ×2 (13:13→21:42)
[2020-09-08] MEDS: buPROPion XL 150 MG TAB.ER.24H. PO SCH (13:38)
--- NOTE | 2020-09-08 17:09 | PDOC2 ---
CONSULT Date of Consult Date of Consult DATE: 09/08/20 TIME: 17:03 Reason for Consult Reason for Consult: Tachycardia Referring Physician Referring Physician: Dr. Gutiérrez Identification/Chief Complaint Chief Complaint Shortness of breath Source Source: Chart review, Patient History of Present Illness Reason for Visit: The patient is a pleasant 80-year-old female who was admitted through the emergency room with episodes of increasing shortness of breath. Patient denies any chest pain. Her initial EKG showed a sinus tachycardia rate of approximately 120 with no acute ischemic changes. She had wondered went a CTA of the chest secondary to elevated D-dimer in the test showed no pulmonary emboli but did show mild pulmonary vascular congestion. She has a history of hypertension as well as hyperlipidemia and coronary artery disease. Her troponin has been negative x2. She states she is feeling better today after treatment. She is being evaluated for possible Covid infection. Past Medical History Cardiovascular: CAD, CHF, HTN, Hyperlipidemia Pulmonary: No pertinent hx GI: No pertinent hx Heme/Onc: No pertinent hx, Other Hepatobiliary: No pertinent hx Renal/: No pertinent hx, Chronic renal insuff Endocrine: Diabetes, Hypothyroidism Past Surgical History Past Surgical History: Appendectomy, Breast Biopsy, , Other (Possible coronary angioplasty. Right mastectomy. Partial thyroidectomy) Family History Family History: Hypertension, Other Social History No ALCOHOL: none Drugs: None Current Problem List Problem List Problems Medical Problems: (1) Lactic acidosis Status: Acute (2) Shortness of breath Status: Acute (3) Sinus tachycardia Status: Acute (4) Suspected 2019 novel coronavirus infection Status: Acute Current Medications Current Medications Current Medications Sodium Chloride 1,000 ml @ 1,000 mls/hr 1X ONCE IV Last administered on 09/08/20at 00:40; Start 09/07/20 at 23:45; Stop 09/08/20 at 00:44; Status DC Aspirin (Ecotrin) 325 mg 1X ONCE PO Last administered on 09/08/20at 00:40; Start 09/07/20 at 23:45; Stop 09/07/20 at 23:46; Status DC Sodium Chloride 1,000 ml @ 125 mls/hr 1X ONCE IV Last administered on 09/08/20at 03:30; Start 09/08/20 at 02:30; Stop 09/08/20 at 10:29; Status DC Iohexol (Omnipaque 350 Mg/ml) 100 ml 1X ONCE IV Last administered on 09/08/20at 03:05; Start 09/08/20 at 03:00; Stop 09/08/20 at 03:01; Status DC Info (CONTRAST GIVEN -- Rx MONITORING) 1 each PRN DAILY PRN MC SEE COMMENTS; Start 09/08/20 at 02:45; Stop 09/10/20 at 02:44 Lorazepam (Ativan Inj) 1 mg 1X ONCE IVP Last administered on 09/08/20at 05:47; Start 09/08/20 at 04:30; Stop 09/08/20 at 04:31; Status DC Insulin Human Lispro (HumaLOG) 0-5 UNITS TIDWMEALS SQ Last administered on 09/08/20at 09:27; Start 09/08/20 at 08:00 Dextrose (Dextrose 50%-Water Syringe) 12.5 gm PRN Q15MIN PRN IV SEE COMMENTS; Start 09/08/20 at 04:00 Sodium Chloride 1,000 ml @ 100 mls/hr 1X ONCE IV ; Start 09/08/20 at 04:00; Stop 09/08/20 at 04:10; Status DC Influenza Virus Vaccine Quadrival (Fluzone Quad [id number] Syringe) 0.5 ml ONCE ONCE VAX IM ; Start 09/08/20 at 21:00; Stop 09/08/20 at 21:01 Aspirin (Ecotrin) 81 mg DAILY PO Last administered on 09/08/20at 13:10; Start 09/08/20 at 13:00 EZETIMIBE (Zetia) 10 mg DAILY PO Last administered on 09/08/20at 13:10; Start 09/08/20 at 13:00 Levothyroxine Sodium (Synthroid) 88 mcg DAILY06 PO Last administered on 09/08/20at 13:12; Start 09/08/20 at 12:30 Pramipexole Dihydrochloride (miraPEX) 0.75 mg QHS PO ; Start 09/08/20 at 21:00 Trazodone HCl (Desyrel) 50 mg QHS PO ; Start 09/08/20 at 21:00 Bupropion HCl (Wellbutrin Xl) 300 mg DAILY PO Last administered on 09/08/20at 13:38; Start 09/08/20 at 13:00 Calcium/Vitamin D (Oscal D 500mg/ 200uts) 1 tab BIDWMEALS PO ; Start 09/08/20 at 17:00 Duloxetine HCl (Cymbalta) 60 mg BID PO ; Start 09/08/20 at 13:00; Status Cancel Metoprolol Succinate (Toprol Xl) 25 mg DAILY PO Last administered on 09/08/20at 13:11; Start 09/08/20 at 13:00 Venlafaxine HCl (Effexor) 50 mg TID PO Last administered on 09/08/20at 13:13; Start 09/08/20 at 14:00 Vitamin B Complex (Raad B) 1 tab DAILY PO Last administered on 09/08/20at 13:10; Start 09/08/20 at 13:00 Sennosides (Senna) 17.2 mg PRN BID PRN PO CONSTIPATION; Start 09/08/20 at 12:15 Docusate Sodium (Colace) 100 mg PRN DAILY PRN PO HARD STOOLS; Start 09/08/20 at 12:15 Ondansetron HCl (Zofran) 4 mg PRN Q6HRS PRN IVP NAUSEA/VOMITING; Start 09/08/20 at 12:15 Insulin Human Lispro (HumaLOG) 0-7 UNITS TIDWMEALS SQ ; Start 09/08/20 at 17:00 Dextrose (Dextrose 50%-Water Syringe) 12.5 gm PRN Q15MIN PRN IV SEE COMMENTS; Start 09/08/20 at 12:15 Acetaminophen (Tylenol) 650 mg PRN Q4HRS PRN PO TEMP OVER 100.4F OR MILD PAIN; Start 09/08/20 at 12:15 Enoxaparin Sodium (Lovenox 40mg Syringe) 40 mg Q24H SQ Last administered on 09/08/20at 13:12; Start 09/08/20 at 13:00 Active Scripts Active Reported Ezetimibe 10 Mg Tablet 1 Tab PO DAILY Venlafaxine Hcl Er (Venlafaxine Hcl) 150 Mg Cap.er.24h 1 Cap PO DAILY Sxftfjvf-Zaqkivjzo-Lh Ear Susp (Neomycin/Polymyxin B Sulf/Hc) 10 Ml Drops.susp 2-3 Drop TID Mupirocin Ointment (Mupirocin) 22 Gm Oint...g. 1 Genia TP TID Cozaar (Losartan Potassium) 50 Mg Tablet 100 Mg PO DAILY Toprol Xl (Metoprolol Succinate) 50 Mg Tab.er.24h 25 Mg PO DAILY Super B Complex (Vitamin B Complex & Vit C No.4) 150 Mg Tablet 150 Mg PO DAILY Calcium + D Soft Chewable Tab (Ca Carbonate/Vitamin D3/Vit K) 1 Each Tab.chew 2 Each PO DAILY Januvia (Sitagliptin Phosphate) 100 Mg Tablet 1 Tab PO DAILY Bupropion Xl (Bupropion Hcl) 300 Mg Tab.er.24h 1 Tab PO DAILY Aspir-Low (Aspirin) 81 Mg Tablet.dr 1 Tab PO DAILY Mirapex (Pramipexole Di-Hcl) 0.25 Mg Tablet 1 Tab PO QHS Hydrocodone-Apap 7.5-325 (Hydrocodone Bit/Acetaminophen) 1 Each Tablet 1 Tab PO PRN Q6HRS PRN Trazodone Hcl 50 Mg Tablet 50 Mg PO DAILY Glipizide 5 Mg Tablet 5 Mg PO DAILY Cymbalta (Duloxetine Hcl) 60 Mg Capsule.dr 1 Cap PO BID Metformin Hcl 1,000 Mg Tablet 1,000 Mg PO DAILYWBKFT Levothyroxine Sodium 88 Mcg Tablet 1 Tab PO DAILY Allergies Allergies: Coded Allergies: BHASKAR Inhibitors (Verified Allergy, Intermediate, 08/29/18) amlodipine (Verified Allergy, Intermediate, 08/29/18) rosuvastatin (Verified Allergy, Intermediate, 08/29/18) muscle cramps ROS General: YES: Fatigue Respiratory: YES: Shortness of breath, SOB with excertion Physical Exam General: mild distress HEENT: Atraumatic Lungs: Other (Mildly decreased breath sounds) Heart: Other (Regular rhythm with a rate of 100) Abdomen: Normal bowel sounds Vitals VITALS Vital Signs Date Time Temp Pulse Resp B/P (MAP) Pulse Ox O2 Delivery O2 Flow Rate FiO2 09/08/20 15:00 97.6 114 22 176/84 (114) 95 Room Air 97.6 Labs Labs Laboratory Tests Test 09/08/20 00:35 09/08/20 02:08 09/08/20 05:25 09/08/20 08:20 White Blood Count 8.2 x10^3/uL (4.0-11.0) Red Blood Count 4.16 x10^6/uL (3.50-5.40) Hemoglobin 13.5 g/dL (12.0-15.5) Hematocrit 40.2 % (36.0-47.0) Mean Corpuscular Volume 97 fL (79-100) Mean Corpuscular Hemoglobin 33 pg (25-35) Mean Corpuscular Hemoglobin Concent 34 g/dL (31-37) Red Cell Distribution Width 13.3 % (11.5-14.5) Platelet Count 245 x10^3/uL (140-400) Neutrophils (%) (Auto) 61 % (31-73) Lymphocytes (%) (Auto) 26 % (24-48) Monocytes (%) (Auto) 9 % (0-9) Eosinophils (%) (Auto) 3 % (0-3) Basophils (%) (Auto) 1 % (0-3) Neutrophils # (Auto) 5.0 x10^3/uL (1.8-7.7) Lymphocytes # (Auto) 2.1 x10^3/uL (1.0-4.8) Monocytes # (Auto) 0.7 x10^3/uL (0.0-1.1) Eosinophils # (Auto) 0.3 x10^3/uL (0.0-0.7) Basophils # (Auto) 0.1 x10^3/uL (0.0-0.2) D-Dimer (Ciera) 1.39 ug/mlFEU (0.00-0.50) Sodium Level 140 mmol/L (136-145) Potassium Level 4.2 mmol/L (3.5-5.1) Chloride Level 102 mmol/L (98-107) Carbon Dioxide Level 26 mmol/L (21-32) Anion Gap 12 (6-14) Blood Urea Nitrogen 18 mg/dL (7-20) Creatinine 1.2 mg/dL (0.6-1.0) Estimated GFR (Cockcroft-Gault) 43.3 BUN/Creatinine Ratio 15 (6-20) Glucose Level 152 mg/dL (70-99) Lactic Acid Level 3.5 mmol/L (0.4-2.0) 2.1 mmol/L (0.4-2.0) Calcium Level 9.5 mg/dL (8.5-10.1) Magnesium Level 1.9 mg/dL (1.8-2.4) Total Bilirubin 0.4 mg/dL (0.2-1.0) Aspartate Amino Transf (AST/SGOT) 23 U/L (15-37) Alanine Aminotransferase (ALT/SGPT) 30 U/L (14-59) Alkaline Phosphatase 94 U/L (46-116) Creatine Kinase 90 U/L (26-192) Creatine Kinase MB (Mass) 0.8 ng/mL (0.0-3.6) Creatine Kinase MB Relative Index 0.9 % (0-4) Troponin I Quantitative < 0.017 ng/mL (0.000-0.055) < 0.017 ng/mL (0.000-0.055) XD-Ttj-F-Type Natriuretic Peptide 128 pg/mL (0-449) Total Protein 7.4 g/dL (6.4-8.2) Albumin 3.7 g/dL (3.4-5.0) Albumin/Globulin Ratio 1.0 (1.0-1.7) Thyroid Stimulating Hormone (TSH) 5.754 uIU/mL (0.358-3.74) Free Thyroxine 0.86 ng/dL (0.76-1.46) Free Triiodothyronine (T3) pg/mL 2.28 pg/mL (2.18-3.98) Urine Collection Type Unknown Urine Color Yellow Urine Clarity Clear Urine pH 6.5 (<5.0-8.0) Urine Specific Iraan <=1.005 (1.000-1.030) Urine Protein Negative mg/dL (NEG-TRACE) Urine Glucose (UA) Negative mg/dL (NEG) Urine Ketones (Stick) Negative mg/dL (NEG) Urine Blood Negative (NEG) Urine Nitrite Negative (NEG) Urine Bilirubin Negative (NEG) Urine Urobilinogen Dipstick 0.2 mg/dL (0.2 mg/dL) Urine Leukocyte Esterase Small (NEG) Urine RBC 1-2 /HPF (0-2) Urine WBC 1-4 /HPF (0-4) Urine Squamous Epithelial Cells Few /LPF Urine Bacteria Few /HPF (0-FEW) Urine Mucus Slight /LPF Glucose (Fingerstick) 170 mg/dL (70-99) Test 09/08/20 11:25 09/08/20 11:45 09/08/20 16:49 Troponin I Quantitative < 0.017 ng/mL (0.000-0.055) Glucose (Fingerstick) 145 mg/dL (70-99) 156 mg/dL (70-99) Laboratory Tests Test 09/08/20 00:35 09/08/20 02:08 09/08/20 05:25 09/08/20 08:20 White Blood Count 8.2 x10^3/uL (4.0-11.0) Red Blood Count 4.16 x10^6/uL (3.50-5.40) Hemoglobin 13.5 g/dL (12.0-15.5) Hematocrit 40.2 % (36.0-47.0) Mean Corpuscular Volume 97 fL (79-100) Mean Corpuscular Hemoglobin 33 pg (25-35) Mean Corpuscular Hemoglobin Concent 34 g/dL (31-37) Red Cell Distribution Width 13.3 % (11.5-14.5) Platelet Count 245 x10^3/uL (140-400) Neutrophils (%) (Auto) 61 % (31-73) Lymphocytes (%) (Auto) 26 % (24-48) Monocytes (%) (Auto) 9 % (0-9) Eosinophils (%) (Auto) 3 % (0-3) Basophils (%) (Auto) 1 % (0-3) Neutrophils # (Auto) 5.0 x10^3/uL (1.8-7.7) Lymphocytes # (Auto) 2.1 x10^3/uL (1.0-4.8) Monocytes # (Auto) 0.7 x10^3/uL (0.0-1.1) Eosinophils # (Auto) 0.3 x10^3/uL (0.0-0.7) Basophils # (Auto) 0.1 x10^3/uL (0.0-0.2) D-Dimer (Ciera) 1.39 ug/mlFEU (0.00-0.50) Sodium Level 140 mmol/L (136-145) Potassium Level 4.2 mmol/L (3.5-5.1) Chloride Level 102 mmol/L (98-107) Carbon Dioxide Level 26 mmol/L (21-32) Anion Gap 12 (6-14) Blood Urea Nitrogen 18 mg/dL (7-20) Creatinine 1.2 mg/dL (0.6-1.0) Estimated GFR (Cockcroft-Gault) 43.3 BUN/Creatinine Ratio 15 (6-20) Glucose Level 152 mg/dL (70-99) Lactic Acid Level 3.5 mmol/L (0.4-2.0) 2.1 mmol/L (0.4-2.0) Calcium Level 9.5 mg/dL (8.5-10.1) Magnesium Level 1.9 mg/dL (1.8-2.4) Total Bilirubin 0.4 mg/dL (0.2-1.0) Aspartate Amino Transf (AST/SGOT) 23 U/L (15-37) Alanine Aminotransferase (ALT/SGPT) 30 U/L (14-59) Alkaline Phosphatase 94 U/L (46-116) Creatine Kinase 90 U/L (26-192) Creatine Kinase MB (Mass) 0.8 ng/mL (0.0-3.6) Creatine Kinase MB Relative Index 0.9 % (0-4) Troponin I Quantitative < 0.017 ng/mL (0.000-0.055) < 0.017 ng/mL (0.000-0.055) VM-Djn-K-Type Natriuretic Peptide 128 pg/mL (0-449) Total Protein 7.4 g/dL (6.4-8.2) Albumin 3.7 g/dL (3.4-5.0) Albumin/Globulin Ratio 1.0 (1.0-1.7) Thyroid Stimulating Hormone (TSH) 5.754 uIU/mL (0.358-3.74) Free Thyroxine 0.86 ng/dL (0.76-1.46) Free Triiodothyronine (T3) pg/mL 2.28 pg/mL (2.18-3.98) Urine Collection Type Unknown Urine Color Yellow Urine Clarity Clear Urine pH 6.5 (<5.0-8.0) Urine Specific Iraan <=1.005 (1.000-1.030) Urine Protein Negative mg/dL (NEG-TRACE) Urine Glucose (UA) Negative mg/dL (NEG) Urine Ketones (Stick) Negative mg/dL (NEG) Urine Blood Negative (NEG) Urine Nitrite Negative (NEG) Urine Bilirubin Negative (NEG) Urine Urobilinogen Dipstick 0.2 mg/dL (0.2 mg/dL) Urine Leukocyte Esterase Small (NEG) Urine RBC 1-2 /HPF (0-2) Urine WBC 1-4 /HPF (0-4) Urine Squamous Epithelial Cells Few /LPF Urine Bacteria Few /HPF (0-FEW) Urine Mucus Slight /LPF Glucose (Fingerstick) 170 mg/dL (70-99) Test 09/08/20 11:25 09/08/20 11:45 09/08/20 16:49 Troponin I Quantitative < 0.017 ng/mL (0.000-0.055) Glucose (Fingerstick) 145 mg/dL (70-99) 156 mg/dL (70-99) Images Images CTA of the chest as above shows no pulmonary emboli. It does show mild pulmonary vascular congestion. Assessment/Plan Assessment/Plan 1. Increased shortness of breath. No pulmonary embolism but possible mild heart failure. Agree with present treatment. Patient is being ruled out for Covid. We will check an echo based on Covid guidelines. 2. History of possible coronary artery disease. Troponins are normal x2. No acute ischemic EKG changes. I agree with present medications and will attempt to find old records. 3. Tachycardia. Patient has been having a sinus tachycardia that appears to be largely reactive. We will continue on monitoring and treat her underlying conditions. 4. History of hyperlipidemia. We will continue medications and check lab. 5. Hypothyroidism. Lab pending. As per the primary service. 6. History of breast cancer. Thank you for allowing us to participate in the care of your pleasant patient. SIDNEY SAHU MD Sep 08, 2020 17:09
[2020-09-08] MEDS: CALCIUM CARB/VIT D3 500/200 TABLET. PO SCH (17:17)
[2020-09-08] MEDS ORDERED: FLU VACC QS 2020-21(6MOS+)/PF 0.5 ML SYRINGE. VAX IM ONE (21:00)
[2020-09-08] MEDS: traZODone 50 MG TABLET. PO SCH (21:42)
[2020-09-08] MEDS: PRAMIPEXOLE 0.25 MG TABLET. PO SCH (21:49)
[2020-09-09 03:00] VITALS: BP 145/72
[2020-09-09 04:55] LABS: BASO % 1 % (0-3); EOS # 0.4 x10^3/uL (0.0-0.7); EOS % 6 % (0-3); HEMOGLOBIN 13.2 g/dL (12.0-15.5); LYMPH # 1.7 x10^3/uL (1.0-4.8); LYMPH % 25 % (24-48); MEAN CORPUSCULAR HEMOGLOBIN 33 pg (25-35); MEAN CORPUSCULAR HGB CONC 34 g/dL (31-37); MEAN CORPUSCULAR VOLUME 97 fL (79-100); MONO # 0.6 x10^3/uL (0.0-1.1); MONO % 10 % (0-9); NEUT # 3.9 x10^3/uL (1.8-7.7); NEUT % 59 % (31-73); PLATELET COUNT 230 x10^3/uL (140-400); RED BLOOD COUNT 4.02 x10^6/uL (3.50-5.40); RED CELL DISTRIBUTION WIDTH 13.2 % (11.5-14.5); WHITE BLOOD COUNT 6.6 x10^3/uL (4.0-11.0)
[2020-09-09 05:17] LABS: CALCIUM 9.5 mg/dL (8.5-10.1); CREATININE 1.3 mg/dL (0.6-1.0); GFR 39.5; PHOSPHORUS 3.3 mg/dL (2.6-4.7); POTASSIUM 4.2 mmol/L (3.5-5.1)
[2020-09-09 07:00] VITALS: BP 152/82
[2020-09-09] MEDS: LEVOTHYROXINE 88 MCG TABLET PO SCH (07:37)
[2020-09-09] MEDS: VENLAFAXINE 50 MG TABLET. PO SCH ×3 (09:47→19:58)
[2020-09-09] MEDS: METOPROLOL SUCC 24HR ER 25 MG TAB.ER.24H. PO SCH (09:47)
[2020-09-09] MEDS: CALCIUM CARB/VIT D3 500/200 TABLET. PO SCH ×2 (09:47→17:56)
[2020-09-09] MEDS: EZETIMIBE 10 MG TABLET. PO SCH (09:47)
[2020-09-09] MEDS: ASPIRIN ENTERIC COATED 81 MG TABLET.DR. PO SCH (09:47)
[2020-09-09] MEDS: buPROPion XL 150 MG TAB.ER.24H. PO SCH (09:47)
[2020-09-09] MEDS: VITAMIN B COMPLEX TABLET. PO SCH (09:47)
[2020-09-09] MEDS: INSULIN LISPRO 300 UNITS/3 ML VIAL. SQ SCH ×3 (09:49→17:59)
--- NOTE | 2020-09-09 10:47 | PDOC ---
[employer] PROGRESS NOTE Date of Service DOS: DATE: 09/09/20 TIME: 10:45 Chief Complaint Chief Complaint Acute respiratory distress and palpitations concerning for non-STEMI COVID-19 negative Subclinical hypothyroidism Elevated D-dimer Lactic acidosis Admit to medicine for further management Cardiology consult for palpitations and tachycardia Pending echocardiogram Titrate O2 supplementation to maintain O2 saturation greater than 92% Continue telemetry monitoring Lovenox for DVT prophylaxis Protonix GI prophylaxis ADA diet Full code Discussed with RN and SW Disposition pending cardiac evaluation Surrogate decision maker is the or son History of Present Illness History of Present Illness 09/09/2020 No acute events overnight. No telemetry monitoring events. Heart rate in the 90s to 60s. Asymptomatic but restless. Does take pramipexole at home for restless leg syndrome. Saturating 96% on room air. Pending echocardiogram. Patient's chart, labs, images were reviewed and discussed with RN 80-year-old female presents with report of shortness of breath that started at 1400 today while organizing things in her house. Patient denies any fever or chills. Denies cough. Denies nasal congestion. Denies known sick contacts. Denies known exposure to COVID-19. Patient does report some palpitations. Patient does report history of partial thyroidectomy. Reports has been compliant with taking her thyroid medication. Vitals/I&O Vitals/I&O: Vital Signs Date Time Temp Pulse Resp B/P (MAP) Pulse Ox O2 Delivery O2 Flow Rate FiO2 09/09/20 09:47 79 152/82 09/09/20 07:00 97.5 18 94 Room Air 97.5 I & O 09/08/20 09/08/20 09/09/20 15:00 23:00 07:00 Intake Total 100 ml 200 ml Balance 100 ml 200 ml Physical Exam General: mild distress Heart: Other (Regular rhythm with a rate of 100) Lungs: Other Abdomen: Normal bowel sounds Labs Labs: Laboratory Tests Test 09/08/20 11:25 09/08/20 11:45 09/08/20 16:49 09/08/20 19:59 Troponin I Quantitative < 0.017 ng/mL (0.000-0.055) Glucose (Fingerstick) 145 mg/dL (70-99) 156 mg/dL (70-99) 204 mg/dL (70-99) Test 09/09/20 04:00 09/09/20 07:54 White Blood Count 6.6 x10^3/uL (4.0-11.0) Red Blood Count 4.02 x10^6/uL (3.50-5.40) Hemoglobin 13.2 g/dL (12.0-15.5) Hematocrit 39.0 % (36.0-47.0) Mean Corpuscular Volume 97 fL (79-100) Mean Corpuscular Hemoglobin 33 pg (25-35) Mean Corpuscular Hemoglobin Concent 34 g/dL (31-37) Red Cell Distribution Width 13.2 % (11.5-14.5) Platelet Count 230 x10^3/uL (140-400) Neutrophils (%) (Auto) 59 % (31-73) Lymphocytes (%) (Auto) 25 % (24-48) Monocytes (%) (Auto) 10 % (0-9) Eosinophils (%) (Auto) 6 % (0-3) Basophils (%) (Auto) 1 % (0-3) Neutrophils # (Auto) 3.9 x10^3/uL (1.8-7.7) Lymphocytes # (Auto) 1.7 x10^3/uL (1.0-4.8) Monocytes # (Auto) 0.6 x10^3/uL (0.0-1.1) Eosinophils # (Auto) 0.4 x10^3/uL (0.0-0.7) Basophils # (Auto) 0.0 x10^3/uL (0.0-0.2) Sodium Level 142 mmol/L (136-145) Potassium Level 4.2 mmol/L (3.5-5.1) Chloride Level 105 mmol/L (98-107) Carbon Dioxide Level 27 mmol/L (21-32) Anion Gap 10 (6-14) Blood Urea Nitrogen 17 mg/dL (7-20) Creatinine 1.3 mg/dL (0.6-1.0) Estimated GFR (Cockcroft-Gault) 39.5 Glucose Level 156 mg/dL (70-99) Calcium Level 9.5 mg/dL (8.5-10.1) Phosphorus Level 3.3 mg/dL (2.6-4.7) Magnesium Level 2.0 mg/dL (1.8-2.4) Glucose (Fingerstick) 168 mg/dL (70-99) Assessment and Plan Assessmemt and Plan Problems Medical Problems: (1) Lactic acidosis Status: Acute (2) Shortness of breath Status: Acute (3) Sinus tachycardia Status: Acute (4) Suspected 2019 novel coronavirus infection Status: Acute Comment Review of Relevant I have reviewed the following items velma (where applicable) has been applied. Medications: Current Medications Medications (Trade) Dose Ordered Sig/Kevin Route PRN Reason Start Time Stop Time Status Last Admin Dose Admin Aspirin (Ecotrin) 81 mg DAILY PO 09/08/20 13:00 09/09/20 09:47 EZETIMIBE (Zetia) 10 mg DAILY PO 09/08/20 13:00 09/09/20 09:47 Levothyroxine Sodium (Synthroid) 88 mcg DAILY06 PO 09/08/20 12:30 09/09/20 07:37 Pramipexole Dihydrochloride (miraPEX) 0.75 mg QHS PO 09/08/20 21:00 09/08/20 21:49 Trazodone HCl (Desyrel) 50 mg QHS PO 09/08/20 21:00 09/08/20 21:42 Bupropion HCl (Wellbutrin Xl) 300 mg DAILY PO 09/08/20 13:00 09/09/20 09:47 Calcium/Vitamin D (Oscal D 500mg/ 200uts) 1 tab BIDWMEALS PO 09/08/20 17:00 09/09/20 09:47 Metoprolol Succinate (Toprol Xl) 25 mg DAILY PO 09/08/20 13:00 09/09/20 09:47 Venlafaxine HCl (Effexor) 50 mg TID PO 09/08/20 14:00 09/09/20 09:47 Vitamin B Complex (Raad B) 1 tab DAILY PO 09/08/20 13:00 09/09/20 09:47 Insulin Human Lispro (HumaLOG) 0-7 UNITS TIDWMEALS SQ 09/08/20 17:00 09/09/20 09:49 Enoxaparin Sodium (Lovenox 40mg Syringe) 40 mg Q24H SQ 09/08/20 13:00 09/08/20 13:12 Justifications for Admission Other Justification Palpitations DEMARIO LUEVANO MD Sep 09, 2020 10:47
[2020-09-09 11:00] VITALS: BP 164/78
--- NOTE | 2020-09-09 13:24 | NUR ---
Pt had nose bleed. Said she had one last night also. Bleeding stopped quickly with pressure. Spoke to Dr Gutiérrez and received orders to stop the lovenox.
[2020-09-09 15:00] VITALS: BP 147/89
--- NOTE | 2020-09-09 16:00 | PDOC ---
PROGRESS NOTES Date of Service DATE: 09/09/20 TIME: 15:58 Subjective Subjective Patient seen and examined Objective Objective Vital Signs Date Time Temp Pulse Resp B/P (MAP) Pulse Ox O2 Delivery O2 Flow Rate FiO2 09/09/20 15:00 96.6 104 18 147/89 (108) 96 Room Air 96.6 Intake and Output 09/09/20 07:00 Intake Total 300 ml Balance 300 ml Intake Oral 300 ml # Voids 1 Physical Exam Abdomen: Normal bowel sounds Heart: Regular rate General: mild distress Lungs: Other (Mildly decreased breath sounds) Assessment Assessment Problems Medical Problems: (1) Lactic acidosis Status: Acute (2) Shortness of breath Status: Acute (3) Sinus tachycardia Status: Acute (4) Suspected 2019 novel coronavirus infection Status: Acute 1. Increased shortness of breath. No pulmonary embolism but possible mild heart failure. Improved today. Covid negative. Continue present treatment. Now that Covid negative we will check an echocardiogram. 2. History of possible coronary artery disease. Troponins are normal x2. No acute ischemic EKG changes. I agree with present medications. 3. Tachycardia. Patient has been having a sinus tachycardia that appears to be largely reactive. Resolved. 4. History of hyperlipidemia. We will continue medications. 5. Hypothyroidism. Lab pending. As per the primary service. 6. History of breast cancer. Comment Review of Relevant I have reviewed the following items velma (where applicable) has been applied. Labs Laboratory Tests Test 09/08/20 00:35 09/08/20 02:08 09/08/20 05:25 09/08/20 08:20 White Blood Count 8.2 x10^3/uL (4.0-11.0) Red Blood Count 4.16 x10^6/uL (3.50-5.40) Hemoglobin 13.5 g/dL (12.0-15.5) Hematocrit 40.2 % (36.0-47.0) Mean Corpuscular Volume 97 fL (79-100) Mean Corpuscular Hemoglobin 33 pg (25-35) Mean Corpuscular Hemoglobin Concent 34 g/dL (31-37) Red Cell Distribution Width 13.3 % (11.5-14.5) Platelet Count 245 x10^3/uL (140-400) Neutrophils (%) (Auto) 61 % (31-73) Lymphocytes (%) (Auto) 26 % (24-48) Monocytes (%) (Auto) 9 % (0-9) Eosinophils (%) (Auto) 3 % (0-3) Basophils (%) (Auto) 1 % (0-3) Neutrophils # (Auto) 5.0 x10^3/uL (1.8-7.7) Lymphocytes # (Auto) 2.1 x10^3/uL (1.0-4.8) Monocytes # (Auto) 0.7 x10^3/uL (0.0-1.1) Eosinophils # (Auto) 0.3 x10^3/uL (0.0-0.7) Basophils # (Auto) 0.1 x10^3/uL (0.0-0.2) D-Dimer (Ciera) 1.39 ug/mlFEU (0.00-0.50) Sodium Level 140 mmol/L (136-145) Potassium Level 4.2 mmol/L (3.5-5.1) Chloride Level 102 mmol/L (98-107) Carbon Dioxide Level 26 mmol/L (21-32) Anion Gap 12 (6-14) Blood Urea Nitrogen 18 mg/dL (7-20) Creatinine 1.2 mg/dL (0.6-1.0) Estimated GFR (Cockcroft-Gault) 43.3 BUN/Creatinine Ratio 15 (6-20) Glucose Level 152 mg/dL (70-99) Lactic Acid Level 3.5 mmol/L (0.4-2.0) 2.1 mmol/L (0.4-2.0) Calcium Level 9.5 mg/dL (8.5-10.1) Magnesium Level 1.9 mg/dL (1.8-2.4) Total Bilirubin 0.4 mg/dL (0.2-1.0) Aspartate Amino Transf (AST/SGOT) 23 U/L (15-37) Alanine Aminotransferase (ALT/SGPT) 30 U/L (14-59) Alkaline Phosphatase 94 U/L (46-116) Creatine Kinase 90 U/L (26-192) Creatine Kinase MB (Mass) 0.8 ng/mL (0.0-3.6) Creatine Kinase MB Relative Index 0.9 % (0-4) Troponin I Quantitative < 0.017 ng/mL (0.000-0.055) < 0.017 ng/mL (0.000-0.055) KQ-Pta-S-Type Natriuretic Peptide 128 pg/mL (0-449) Total Protein 7.4 g/dL (6.4-8.2) Albumin 3.7 g/dL (3.4-5.0) Albumin/Globulin Ratio 1.0 (1.0-1.7) Thyroid Stimulating Hormone (TSH) 5.754 uIU/mL (0.358-3.74) Free Thyroxine 0.86 ng/dL (0.76-1.46) Free Triiodothyronine (T3) pg/mL 2.28 pg/mL (2.18-3.98) Urine Collection Type Unknown Urine Color Yellow Urine Clarity Clear Urine pH 6.5 (<5.0-8.0) Urine Specific [place] <=1.005 (1.000-1.030) Urine Protein Negative mg/dL (NEG-TRACE) Urine Glucose (UA) Negative mg/dL (NEG) Urine Ketones (Stick) Negative mg/dL (NEG) Urine Blood Negative (NEG) Urine Nitrite Negative (NEG) Urine Bilirubin Negative (NEG) Urine Urobilinogen Dipstick 0.2 mg/dL (0.2 mg/dL) Urine Leukocyte Esterase Small (NEG) Urine RBC 1-2 /HPF (0-2) Urine WBC 1-4 /HPF (0-4) Urine Squamous Epithelial Cells Few /LPF Urine Bacteria Few /HPF (0-FEW) Urine Mucus Slight /LPF Coronavirus (PCR) Not detected (Not Detected) Glucose (Fingerstick) 170 mg/dL (70-99) Test 09/08/20 11:25 09/08/20 11:45 09/08/20 16:49 09/08/20 19:59 Troponin I Quantitative < 0.017 ng/mL (0.000-0.055) Glucose (Fingerstick) 145 mg/dL (70-99) 156 mg/dL (70-99) 204 mg/dL (70-99) Test 09/09/20 04:00 09/09/20 07:54 White Blood Count 6.6 x10^3/uL (4.0-11.0) Red Blood Count 4.02 x10^6/uL (3.50-5.40) Hemoglobin 13.2 g/dL (12.0-15.5) Hematocrit 39.0 % (36.0-47.0) Mean Corpuscular Volume 97 fL (79-100) Mean Corpuscular Hemoglobin 33 pg (25-35) Mean Corpuscular Hemoglobin Concent 34 g/dL (31-37) Red Cell Distribution Width 13.2 % (11.5-14.5) Platelet Count 230 x10^3/uL (140-400) Neutrophils (%) (Auto) 59 % (31-73) Lymphocytes (%) (Auto) 25 % (24-48) Monocytes (%) (Auto) 10 % (0-9) Eosinophils (%) (Auto) 6 % (0-3) Basophils (%) (Auto) 1 % (0-3) Neutrophils # (Auto) 3.9 x10^3/uL (1.8-7.7) Lymphocytes # (Auto) 1.7 x10^3/uL (1.0-4.8) Monocytes # (Auto) 0.6 x10^3/uL (0.0-1.1) Eosinophils # (Auto) 0.4 x10^3/uL (0.0-0.7) Basophils # (Auto) 0.0 x10^3/uL (0.0-0.2) Sodium Level 142 mmol/L (136-145) Potassium Level 4.2 mmol/L (3.5-5.1) Chloride Level 105 mmol/L (98-107) Carbon Dioxide Level 27 mmol/L (21-32) Anion Gap 10 (6-14) Blood Urea Nitrogen 17 mg/dL (7-20) Creatinine 1.3 mg/dL (0.6-1.0) Estimated GFR (Cockcroft-Gault) 39.5 Glucose Level 156 mg/dL (70-99) Calcium Level 9.5 mg/dL (8.5-10.1) Phosphorus Level 3.3 mg/dL (2.6-4.7) Magnesium Level 2.0 mg/dL (1.8-2.4) Glucose (Fingerstick) 168 mg/dL (70-99) Laboratory Tests Test 09/08/20 16:49 09/08/20 19:59 09/09/20 04:00 09/09/20 07:54 Glucose (Fingerstick) 156 mg/dL (70-99) 204 mg/dL (70-99) 168 mg/dL (70-99) White Blood Count 6.6 x10^3/uL (4.0-11.0) Red Blood Count 4.02 x10^6/uL (3.50-5.40) Hemoglobin 13.2 g/dL (12.0-15.5) Hematocrit 39.0 % (36.0-47.0) Mean Corpuscular Volume 97 fL (79-100) Mean Corpuscular Hemoglobin 33 pg (25-35) Mean Corpuscular Hemoglobin Concent 34 g/dL (31-37) Red Cell Distribution Width 13.2 % (11.5-14.5) Platelet Count 230 x10^3/uL (140-400) Neutrophils (%) (Auto) 59 % (31-73) Lymphocytes (%) (Auto) 25 % (24-48) Monocytes (%) (Auto) 10 % (0-9) Eosinophils (%) (Auto) 6 % (0-3) Basophils (%) (Auto) 1 % (0-3) Neutrophils # (Auto) 3.9 x10^3/uL (1.8-7.7) Lymphocytes # (Auto) 1.7 x10^3/uL (1.0-4.8) Monocytes # (Auto) 0.6 x10^3/uL (0.0-1.1) Eosinophils # (Auto) 0.4 x10^3/uL (0.0-0.7) Basophils # (Auto) 0.0 x10^3/uL (0.0-0.2) Sodium Level 142 mmol/L (136-145) Potassium Level 4.2 mmol/L (3.5-5.1) Chloride Level 105 mmol/L (98-107) Carbon Dioxide Level 27 mmol/L (21-32) Anion Gap 10 (6-14) Blood Urea Nitrogen 17 mg/dL (7-20) Creatinine 1.3 mg/dL (0.6-1.0) Estimated GFR (Cockcroft-Gault) 39.5 Glucose Level 156 mg/dL (70-99) Calcium Level 9.5 mg/dL (8.5-10.1) Phosphorus Level 3.3 mg/dL (2.6-4.7) Magnesium Level 2.0 mg/dL (1.8-2.4) Microbiology 09/08/20 Urine Culture - Final, Complete Medications Current Medications Sodium Chloride 1,000 ml @ 1,000 mls/hr 1X ONCE IV Last administered on 09/08/20at 00:40; Start 09/07/20 at 23:45; Stop 09/08/20 at 00:44; Status DC Aspirin (Ecotrin) 325 mg 1X ONCE PO Last administered on 09/08/20at 00:40; Start 09/07/20 at 23:45; Stop 09/07/20 at 23:46; Status DC Sodium Chloride 1,000 ml @ 125 mls/hr 1X ONCE IV Last administered on 09/08/20at 03:30; Start 09/08/20 at 02:30; Stop 09/08/20 at 10:29; Status DC Iohexol (Omnipaque 350 Mg/ml) 100 ml 1X ONCE IV Last administered on 09/08/20at 03:05; Start 09/08/20 at 03:00; Stop 09/08/20 at 03:01; Status DC Info (CONTRAST GIVEN -- Rx MONITORING) 1 each PRN DAILY PRN MC SEE COMMENTS; Start 09/08/20 at 02:45; Stop 09/10/20 at 02:44 Lorazepam (Ativan Inj) 1 mg 1X ONCE IVP Last administered on 09/08/20at 05:47; Start 09/08/20 at 04:30; Stop 09/08/20 at 04:31; Status DC Insulin Human Lispro (HumaLOG) 0-5 UNITS TIDWMEALS SQ Last administered on 09/08/20at 09:27; Start 09/08/20 at 08:00; Stop 09/08/20 at 17:13; Status DC Dextrose (Dextrose 50%-Water Syringe) 12.5 gm PRN Q15MIN PRN IV SEE COMMENTS; Start 09/08/20 at 04:00 Sodium Chloride 1,000 ml @ 100 mls/hr 1X ONCE IV ; Start 09/08/20 at 04:00; Stop 09/08/20 at 04:10; Status DC Influenza Virus Vaccine Quadrival (Fluzone Quad Syringe) 0.5 ml ONCE ONCE VAX IM ; Start 09/08/20 at 21:00; Stop 09/08/20 at 21:01; Status DC Aspirin (Ecotrin) 81 mg DAILY PO Last administered on 09/09/20 09:47; Start 09/08/20 at 13:00 EZETIMIBE (Zetia) 10 mg DAILY PO Last administered on 09/09/20 09:47; Start 09/08/20 at 13:00 Levothyroxine Sodium (Synthroid) 88 mcg DAILY06 PO Last administered on 09/09/20at 07:37; Start 09/08/20 at 12:30 Pramipexole Dihydrochloride (miraPEX) 0.75 mg QHS PO Last administered on 09/08/20 21:49; Start 09/08/20 at 21:00 Trazodone HCl (Desyrel) 50 mg QHS PO Last administered on 09/08/20at 21:42; Start 09/08/20 at 21:00 Bupropion HCl (Wellbutrin Xl) 300 mg DAILY PO Last administered on 09/09/20at 09:47; Start 09/08/20 at 13:00 Calcium/Vitamin D (Oscal D 500mg/ 200uts) 1 tab BIDWMEALS PO Last administered on 09/09/20 09:47; Start 09/08/20 at 17:00 Duloxetine HCl (Cymbalta) 60 mg BID PO ; Start 09/08/20 at 13:00; Status Cancel Metoprolol Succinate (Toprol Xl) 25 mg DAILY PO Last administered on 09/09/20 09:47; Start 09/08/20 at 13:00 Venlafaxine HCl (Effexor) 50 mg TID PO Last administered on 09/09/20at 13:34; Start 09/08/20 at 14:00 Vitamin B Complex (Raad B) 1 tab DAILY PO Last administered on 09/09/20 09:47; Start 09/08/20 at 13:00 Sennosides (Senna) 17.2 mg PRN BID PRN PO CONSTIPATION; Start 09/08/20 at 12:15 Docusate Sodium (Colace) 100 mg PRN DAILY PRN PO HARD STOOLS; Start 09/08/20 at 12:15 Ondansetron HCl (Zofran) 4 mg PRN Q6HRS PRN IVP NAUSEA/VOMITING; Start 09/08/20 at 12:15 Insulin Human Lispro (HumaLOG) 0-7 UNITS TIDWMEALS SQ Last administered on 09/09/20at 13:05; Start 09/08/20 at 17:00 Dextrose (Dextrose 50%-Water Syringe) 12.5 gm PRN Q15MIN PRN IV SEE COMMENTS; Start 09/08/20 at 12:15 Acetaminophen (Tylenol) 650 mg PRN Q4HRS PRN PO TEMP OVER 100.4F OR MILD PAIN; Start 09/08/20 at 12:15 Enoxaparin Sodium (Lovenox 40mg Syringe) 40 mg Q24H SQ Last administered on 09/08/20at 13:12; Start 09/08/20 at 13:00; Stop 09/09/20 at 13:25; Status DC Active Scripts Active Reported Ezetimibe 10 Mg Tablet 1 Tab PO DAILY Venlafaxine Hcl Er (Venlafaxine Hcl) 150 Mg Cap.er.24h 1 Cap PO DAILY Afngkxgq-Gzkqcbuct-Ik Ear Susp (Neomycin/Polymyxin B Sulf/Hc) 10 Ml Drops.susp 2-3 Drop TID Mupirocin Ointment (Mupirocin) 22 Gm Oint...g. 1 Genia TP TID Cozaar (Losartan Potassium) 50 Mg Tablet 100 Mg PO DAILY Toprol Xl (Metoprolol Succinate) 50 Mg Tab.er.24h 25 Mg PO DAILY Super B Complex (Vitamin B Complex & Vit C No.4) 150 Mg Tablet 150 Mg PO DAILY Calcium + D Soft Chewable Tab (Ca Carbonate/Vitamin D3/Vit K) 1 Each Tab.chew 2 Each PO DAILY Januvia (Sitagliptin Phosphate) 100 Mg Tablet 1 Tab PO DAILY Bupropion Xl (Bupropion Hcl) 300 Mg Tab.er.24h 1 Tab PO DAILY Aspir-Low (Aspirin) 81 Mg Tablet.dr 1 Tab PO DAILY Mirapex (Pramipexole Di-Hcl) 0.25 Mg Tablet 1 Tab PO QHS Hydrocodone-Apap 7.5-325 (Hydrocodone Bit/Acetaminophen) 1 Each Tablet 1 Tab PO PRN Q6HRS PRN Trazodone Hcl 50 Mg Tablet 50 Mg PO DAILY Glipizide 5 Mg Tablet 5 Mg PO DAILY Cymbalta (Duloxetine Hcl) 60 Mg Capsule.dr 1 Cap PO BID Metformin Hcl 1,000 Mg Tablet 1,000 Mg PO DAILYWBKFT Levothyroxine Sodium 88 Mcg Tablet 1 Tab PO DAILY Vitals/I & O Vital Sign - Last 24 Hours 09/08/20 09/08/20 09/08/20 09/09/20 19:00 20:00 23:00 03:00 Temp 95.6 95.5 96.5 95.6 95.5 96.5 Pulse 87 91 69 Resp 20 19 14 B/P (MAP) 166/77 (106) 167/76 (106) 145/72 (96) Pulse Ox 90 97 96 O2 Delivery Room Air Room Air Room Air Room Air 09/09/20 09/09/20 09/09/20 09/09/20 07:00 08:00 09:47 11:00 Temp 97.5 96.0 97.5 96.0 Pulse 79 79 84 Resp 18 18 B/P (MAP) 152/82 (105) 152/82 164/78 (106) Pulse Ox 94 94 O2 Delivery Room Air Room Air Room Air 09/09/20 15:00 Temp 96.6 96.6 Pulse 104 Resp 18 B/P (MAP) 147/89 (108) Pulse Ox 96 O2 Delivery Room Air Intake and Output 09/08/20 09/08/20 09/09/20 15:00 23:00 07:00 Intake Total 100 ml 200 ml Balance 100 ml 200 ml Justifications for Admission Other Justification Palpitations SIDNEY SAHU MD Sep 09, 2020 16:00
[2020-09-09 19:00] VITALS: BP 141/71
[2020-09-09] MEDS: PRAMIPEXOLE 0.25 MG TABLET. PO SCH (19:58)
[2020-09-09] MEDS: traZODone 50 MG TABLET. PO SCH (19:58)
[2020-09-09 23:00] VITALS: BP 151/64
[2020-09-10 03:00] VITALS: BP 124/60
[2020-09-10] MEDS: LEVOTHYROXINE 88 MCG TABLET PO SCH (05:40)
--- NOTE | 2020-09-10 07:29 | NUR ---
Unable to print telemetry strip due to printer. Pt SR on the monitor.
[2020-09-10 07:56] VITALS: BP 155/66
[2020-09-10] MEDS: CALCIUM CARB/VIT D3 500/200 TABLET. PO SCH (08:34)
[2020-09-10] MEDS: INSULIN LISPRO 300 UNITS/3 ML VIAL. SQ SCH ×2 (08:36→11:23)
[2020-09-10] MEDS: VITAMIN B COMPLEX TABLET. PO SCH (08:36)
[2020-09-10] MEDS: ASPIRIN ENTERIC COATED 81 MG TABLET.DR. PO SCH (08:36)
[2020-09-10] MEDS: buPROPion XL 150 MG TAB.ER.24H. PO SCH (08:36)
[2020-09-10] MEDS: VENLAFAXINE 50 MG TABLET. PO SCH ×2 (08:36→13:55)
[2020-09-10] MEDS: EZETIMIBE 10 MG TABLET. PO SCH (08:37)
[2020-09-10] MEDS: METOPROLOL SUCC 24HR ER 25 MG TAB.ER.24H. PO SCH (08:37)
[2020-09-10 11:59] VITALS: BP 134/67
--- NOTE | 2020-09-10 13:16 | PDOC ---
[employer] PROGRESS NOTE Date of Service DOS: DATE: 09/10/20 TIME: 13:16 Chief Complaint Chief Complaint A/P: Acute diastolic CHF Acute respiratory distress and palpitations COVID-19 negative Subclinical hypothyroidism Elevated D-dimer Lactic acidosis Chronic kidney disease. Hyperlipidemia. Obesity. Admit to medicine for further management Cardiology consult for palpitations and tachycardia Pending echocardiogram Titrate O2 supplementation to maintain O2 saturation greater than 92% Continue telemetry monitoring Lovenox for DVT prophylaxis Protonix GI prophylaxis ADA diet Full code Discussed with RN and SW Disposition pending cardiac evaluation Surrogate decision maker is the or son History of Present Illness History of Present Illness Ms Castillo is a 80-year-old female w/ PMHx CAD s/p PCI to RCA 2018, Hypothyroidism, HTN, Depression, HLD, RLS, breast cancer in remission who presents with report of shortness of breath that started at 1400 on 09/08/2020 while organizing things in her house. Patient denies any fever or chills. Denies cough. Denies nasal congestion. Denies known sick contacts. Denies known exposure to COVID-19. Patient does report some palpitations. Patient does report history of partial thyroidectomy. Reports has been compliant with taking her thyroid medication and cardiac meds. CTPA negative for PE. Troponin x3 negative. Admitted with CHF exacerbation 09/09: No acute events overnight. No telemetry monitoring events. Heart rate in the 90s to 60s. Asymptomatic but restless. Does take pramipexole at home for restless leg syndrome. Saturating 96% on room air. Afebrile. Shortness of breath improved. No chest pain. Awaiting echocardiogram. COVID-19 returned negative. Plan: Home with outpatient cardiology f/u. Could be anginal equivalent Vitals/I&O Vitals/I&O: Vital Signs Date Time Temp Pulse Resp B/P (MAP) Pulse Ox O2 Delivery O2 Flow Rate FiO2 09/10/20 11:59 97.5 92 20 134/67 (89) 94 Room Air 97.5 I & O0 09/09/20 09/09/20 09/10/20 15:00 23:00 07:00 Intake Total 450 ml 300 ml Balance 450 ml 300 ml Physical Exam General: mild distress Heart: Regular rate Lungs: Other Abdomen: Normal bowel sounds Labs Labs: Laboratory Tests Test 09/09/20 16:36 09/09/20 20:03 09/10/20 07:30 09/10/20 10:58 Glucose (Fingerstick) 161 mg/dL (70-99) 191 mg/dL (70-99) 165 mg/dL (70-99) 138 mg/dL (70-99) Assessment and Plan Assessmemt and Plan Problems Medical Problems: (1) Lactic acidosis Status: Acute (2) Shortness of breath Status: Acute (3) Sinus tachycardia Status: Acute (4) Suspected 2019 novel coronavirus infection Status: Acute Comment Review of Relevant I have reviewed the following items velma (where applicable) has been applied. Justifications for Admission Other Justification Palpitations GLEN PAIGE MD Sep 10, 2020 13:16
--- NOTE | 2020-09-10 15:22 | PDOC3 ---
Discharge Summary Visit Information Date of Admission: Sep 08, 2020 Date of Discharge: Sep 10, 2020 Admitting Diagnosis: Shortness of breath Final Diagnosis Problems Medical Problems: (1) Lactic acidosis Status: Acute (2) Shortness of breath Status: Acute (3) Sinus tachycardia Status: Acute (4) Suspected 2019 novel coronavirus infection Status: Acute Brief Hospital Course Allergies Allergies Coded Allergies Type Severity Reaction Last Updated Verified BHASKAR Inhibitors Allergy Intermediate 08/29/18 Yes amlodipine Allergy Intermediate 08/29/18 Yes rosuvastatin Allergy Intermediate 08/29/18 Yes Vital Signs Vital Signs Date Time Temp Pulse Resp B/P (MAP) Pulse Ox O2 Delivery O2 Flow Rate FiO2 09/10/20 11:59 97.5 92 20 134/67 (89) 94 Room Air 97.5 Lab Results Laboratory Tests Test 09/08/20 16:49 09/08/20 19:59 09/09/20 04:00 09/09/20 07:54 Glucose (Fingerstick) 156 mg/dL (70-99) 204 mg/dL (70-99) 168 mg/dL (70-99) White Blood Count 6.6 x10^3/uL (4.0-11.0) Red Blood Count 4.02 x10^6/uL (3.50-5.40) Hemoglobin 13.2 g/dL (12.0-15.5) Hematocrit 39.0 % (36.0-47.0) Mean Corpuscular Volume 97 fL (79-100) Mean Corpuscular Hemoglobin 33 pg (25-35) Mean Corpuscular Hemoglobin Concent 34 g/dL (31-37) Red Cell Distribution Width 13.2 % (11.5-14.5) Platelet Count 230 x10^3/uL (140-400) Neutrophils (%) (Auto) 59 % (31-73) Lymphocytes (%) (Auto) 25 % (24-48) Monocytes (%) (Auto) 10 % (0-9) Eosinophils (%) (Auto) 6 % (0-3) Basophils (%) (Auto) 1 % (0-3) Neutrophils # (Auto) 3.9 x10^3/uL (1.8-7.7) Lymphocytes # (Auto) 1.7 x10^3/uL (1.0-4.8) Monocytes # (Auto) 0.6 x10^3/uL (0.0-1.1) Eosinophils # (Auto) 0.4 x10^3/uL (0.0-0.7) Basophils # (Auto) 0.0 x10^3/uL (0.0-0.2) Sodium Level 142 mmol/L (136-145) Potassium Level 4.2 mmol/L (3.5-5.1) Chloride Level 105 mmol/L (98-107) Carbon Dioxide Level 27 mmol/L (21-32) Anion Gap 10 (6-14) Blood Urea Nitrogen 17 mg/dL (7-20) Creatinine 1.3 mg/dL (0.6-1.0) Estimated GFR (Cockcroft-Gault) 39.5 Glucose Level 156 mg/dL (70-99) Calcium Level 9.5 mg/dL (8.5-10.1) Phosphorus Level 3.3 mg/dL (2.6-4.7) Magnesium Level 2.0 mg/dL (1.8-2.4) Test 09/09/20 11:23 09/09/20 16:36 09/09/20 20:03 09/10/20 07:30 Glucose (Fingerstick) 175 mg/dL (70-99) 161 mg/dL (70-99) 191 mg/dL (70-99) 165 mg/dL (70-99) Test 09/10/20 10:58 Glucose (Fingerstick) 138 mg/dL (70-99) Laboratory Tests Test 09/09/20 16:36 09/09/20 20:03 09/10/20 07:30 09/10/20 10:58 Glucose (Fingerstick) 161 mg/dL (70-99) 191 mg/dL (70-99) 165 mg/dL (70-99) 138 mg/dL (70-99) Brief Hospital Course Ms Castillo is a 80-year-old female w/ PMHx CAD s/p PCI to RCA 2018, Hypo thyroidism, HTN, Depression, HLD, RLS, breast cancer in remission who presents with report of shortness of breath that started at 1400 on 09/08/2020 while organizing things in her house. Patient denies any fever or chills. Denies cough. Denies nasal congestion. Denies known sick contacts. Denies known exposure to COVID-19. Patient does report some palpitations. Patient does re port history of partial thyroidectomy. Reports has been compliant with taking her thyroid medication and cardiac meds. CTPA negative for PE. Troponin x3 negative. Admitted with CHF exacerbation 09/09: No acute events overnight. No telemetry monitoring events. Heart rate in the 90s to 60s. Asymptomatic but restless. Does take pramipexole at home for restless leg syndrome. Saturating 96% on room air. Afebrile. Shortness of breath improved. No chest pain. Awaiting echocardiogram. COVID-19 returned negative. Consults: Cardiology Problem list: Acute diastolic CHF Acute respiratory distress and palpitations COVID-19 negative Subclinical hypothyroidism Elevated D-dimer Lactic acidosis Chronic kidney disease. Hyperlipidemia. Obesity. Admit to medicine for further management Cardiology consult for palpitations and tachycardia Pending echocardiogram Titrate O2 supplementation to maintain O2 saturation greater than 92% Continue telemetry monitoring Lovenox for DVT prophylaxis Protonix GI prophylaxis ADA diet Full code Discussed with RN and SW Disposition pending cardiac evaluation Surrogate decision maker is the or son Plan: Home with outpatient cardiology f/u. Could be anginal equivalent Greater than 30 minutes spent on d/c home with self care. Discharge Information Condition at Discharge: Improved Follow Up: Weeks (1) Disposition/Orders: D/C to Home Scheduled Aspirin (Aspir-Low) 81 Mg Tablet.dr, 1 TAB PO DAILY, #30 Ref 3 (Reported) Entered as Reported by: JERROD ROSARIO on 04/15/18821 Last Action: Continued on 09/08/201204 by DEMARIO LUEVANO MD Bupropion Hcl (Bupropion Xl) 300 Mg Tab.er.24h, 1 TAB PO DAILY, #30 Ref 2 (Reported) Entered as Reported by: JERROD ROSARIO on 04/15/18821 Last Action: Converted on 09/08/201204 by DEMARIO LUEVANO MD Ca Carbonate/Vitamin D3/Vit K (Calcium + D Soft Chewable Tab) 1 Each Tab.chew, 2 EACH PO DAILY, (Reported) Entered as Reported by: JERROD ROSARIO on 04/15/18821 Last Action: Converted on 09/08/201204 by DEMARIO LUEVANO MD Duloxetine Hcl (Cymbalta) 60 Mg Capsule.dr, 1 CAP PO BID, #90 Ref 3 (Reported) Entered as Reported by: JERROD ROSARIO on 04/15/18821 Last Action: Converted on 09/08/201204 by DEMARIO LUEVANO MD Ezetimibe (Ezetimibe) 10 Mg Tablet, 1 TAB PO DAILY for CHOLESTEROL, (Reported) Entered as Reported by: YENNI BEASLEY on 09/08/20818 Last Taken: Unknown Dose on Unknown Date & Time Last Action: Continued on 09/08/201204 by DEMARIO LUEVANO MD Glipizide (Glipizide) 5 Mg Tablet, 5 MG PO DAILY, (Reported) Entered as Reported by: JERROD ROSARIO on 04/15/18821 Levothyroxine Sodium (Levothyroxine Sodium) 88 Mcg Tablet, 1 TAB PO DAILY, #30 Ref 5 (Reported) Entered as Reported by: JERROD ROSARIO on 04/15/18821 Last Action: Continued on 09/08/201204 by DEMARIO LUEVANO MD Losartan Potassium (Cozaar ) 50 Mg Tablet, 100 MG PO DAILY for HYPERTENSION, (Reported) Entered as Reported by: JONA HENRIQUEZ on 09/01/181128 Last Action: HELD on 09/08/201204 by DEMARIO LUEVANO MD Metformin Hcl (Metformin Hcl) 1,000 Mg Tablet, 1,000 MG PO DAILYWBKFT for ANTI- DIABETIC, Ref 0 (Reported) Entered as Reported by: JERROD ROSARIO on 04/15/18821 Metoprolol Succinate (Toprol Xl) 50 Mg Tab.er.24h, 25 MG PO DAILY for FOR HYPERTENSION, #30 Ref 0 (Reported) Entered as Reported by: JONA HENRIQUEZ on 09/01/181128 Last Action: Converted on 09/08/201204 by DEMARIO LUEVANO MD Mupirocin (Mupirocin Ointment) 22 Gm Oint...g., 1 KRYSTA TP TID for INFECTION, (Reported) Entered as Reported by: YENNI BEASLEY on 09/08/20818 Last Taken: Unknown Dose on Unknown Date & Time Last Action: New Order on 09/08/20818 by YENNI BEASLEY Neomycin/Polymyxin B Sulf/Hc (Dofxzjop-Tevmqftjq-Zs Ear Susp) 10 Ml Drops.susp, 2-3 DROP TID for EAR INFECTION, (Reported) Entered as Reported by: YENNI BEASLEY on 09/08/20818 Last Taken: Unknown Dose on Unknown Date & Time Last Action: New Order on 09/08/20818 by YENNI BEASLEY Pramipexole Di-Hcl (Mirapex) 0.25 Mg Tablet, 1 TAB PO QHS, #90 Ref 1 (Reported) Entered as Reported by: JERROD ROSARIO on 04/15/18821 Last Action: Continued on 09/08/201204 by DEMARIO LUEVANO MD Sitagliptin Phosphate (Januvia) 100 Mg Tablet, 1 TAB PO DAILY, #30 Ref 5 (Reported) Entered as Reported by: JERROD ROSARIO on 04/15/18821 Last Action: HELD on 09/08/201204 by DEMARIO LUEVANO MD Trazodone Hcl (Trazodone Hcl) 50 Mg Tablet, 50 MG PO DAILY, (Reported) Entered as Reported by: JERROD ROSARIO on 04/15/18821 Last Action: Continued on 09/08/201204 by DEMARIO LUEVANO MD Venlafaxine Hcl (Venlafaxine Hcl Er) 150 Mg Cap.er.24h, 1 CAP PO DAILY for DEPRESSION, (Reported) Entered as Reported by: YENNI BEASLEY on 09/08/20818 Last Taken: Unknown Dose on Unknown Date & Time Last Action: Converted on 09/08/201204 by DEMARIO LUEVANO MD Vitamin B Complex & Vit C No.4 (Super B Complex) 150 Mg Tablet, 150 MG PO DAILY, (Reported) Entered as Reported by: JERROD ROSARIO on 04/15/18821 Last Action: Converted on 09/08/201204 by DEMARIO LUEVANO MD Scheduled PRN Hydrocodone Bit/Acetaminophen (Hydrocodone-Apap 7.5-325 ) 1 Each Tablet, 1 TAB PO PRN Q6HRS PRN for PAIN, Ref 0 (Reported) Entered as Reported by: JERROD ROSARIO on 04/15/18821 Justicifation of Admission Dx: Justifications for Admission: Justification of Admission Dx: Yes Respiratory Failure: Severe Resp Distress GLEN PAIGE MD Sep 10, 2020 15:22
[2020-09-10 15:59] VITALS: BP 147/68
--- NOTE | 2020-09-10 16:15 | NUR ---
SW following for discharge planning. Spoke with RN and reviewed chart. Pt to discharge home today, self-care. Pt on room air and oral medications. No further SW needs at this time.
--- NOTE | 2020-09-10 16:46 | NUR ---
Pt left unit at approx 1645 by wheelchair via private vehicle with spouse. VSS. Discharge paperwork and follow-up discussed with pt, further questions addressed.
--- NOTE | 2020-09-10 16:53 | CARD ---
MR#: [id number] Date of Study: 09/10/2020 Ordering Physician: SANTHOSH RYDER, Referring Physician: SANTHOSH RYDER, Tech: Eva Alvarez [facility] APPROVED REPORT EXAM: Two-dimensional and M-mode echocardiogram with Doppler and color Doppler. Other Information Quality : Technically LimitedHR: 87bpm Rhythm : NSR INDICATION Dyspnea RISK FACTORS Hypertension Obesity Hyperlipidemia 2D DIMENSIONS Left Atrium(2D)4.2 (1.6-4.0cm)IVSd0.9 (0.7-1.1cm) Aortic Root(2D)2.4 (2.0-3.7cm)LVDd3.6 (3.9-5.9cm) LVOT Diameter2.1 (1.8-2.4cm)PWd1.0 (0.7-1.1cm) LVDs2.4 (2.5-4.0cm)FS (%) 33.5 % SV35.1 mlLVEF(%)63.1 (>50%) Aortic Valve AoV Peak Rah.118.0cm/sAoV VTI22.2cm AO Peak GR.5.6mmHgLVOT Peak Rah.73.4cm/s AO Mean GR.3mmHgAVA (VMAX)2.07cm2 Pulmonary Vein S1 Nlunvebt01.5cm/sD2 Apyacsgv56.7cm/s PVa [id number] LEFT VENTRICLE The left ventricle is normal size. There is normal left ventricular wall thickness. The left ventricu lar systolic function is normal and the ejection fraction is within normal range. The ejection fracti on is 55 to 60% There is normal LV segmental wall motion. Unable to determine diastolic fx. RIGHT VENTRICLE The right ventricle is normal size. There is normal right ventricular wall thickness. The right ventr icular systolic function is normal. ATRIA The left atrium size is normal. The right atrium size is normal. The interatrial septum is intact wit h no evidence for an atrial septal defect or patent foramen ovale as noted on 2-D or Doppler imaging. AORTIC VALVE The aortic valve is normal in structure and function. Doppler and Color Flow revealed no significant aortic regurgitation. There is no significant aortic valvular stenosis. MITRAL VALVE The mitral valve is normal in structure and function. There is no evidence of mitral valve prolapse. There is no mitral valve stenosis. Doppler and Color Flow revealed mild mitral regurgitation. TRICUSPID VALVE The tricuspid valve is normal in structure and function. Doppler and Color Flow revealed no tricuspid valve regurgitation noted. PULMONIC VALVE The pulmonary valve is normal in structure and function. Doppler and Color Flow revealed no pulmonic valvular regurgitation. GREAT VESSELS The aortic root is normal in size. The ascending aorta is normal in size. Not visualized. PERICARDIAL EFFUSION There is no evidence of significant pericardial effusion. Critical Notification Critical Value: No <Conclusion> The left ventricle is normal size. The left ventricular systolic function is normal and the ejection fraction is within normal range. The ejection fraction is 55 to 60% Doppler and Color Flow revealed no significant aortic regurgitation. There is no significant aortic valvular stenosis. Doppler and Color Flow revealed mild mitral regurgitation. Doppler and Color Flow revealed no tricuspid valve regurgitation noted. Signed by : Santhosh Ryder MD Electronically Approved : 09/10/2020 16:53:01
--- NOTE | 2020-09-11 06:55 | PDOC ---
Provider Note Date of Service: DATE: 09/11/20 TIME: 06:51 Provider Note Late entry for 09/10/20 S: No acute events overnight. Patient feels well and is ready to go home. O: VSS Clr lungs. No edema. Normal heart tones. Labs reviewed. Imaging reviewed. - echo with normal LV function. CT reviewed. Impression: 1. Mild acute on chronic diastolic HF without active ischemia with known prior RCA PCI. 2. HTN 3. Covid ruled out. Recs: 1. Ok to DC home and will f/u in the office for routine CAD mgmt. Justifications for Admission Other Justification Palpitations CORI DINERO MD Sep 11, 2020 06:55
== END 2020-09-10 16:48 | disposition home or self-care (01) | DRG 291 ==
LOC: ER 22:17 → 6 SOUTH 09-08 04:49
PROVIDERS: ADMIT Internal Medicine; ATTEND Internal Medicine
DX: I13.0 Hypertensive heart and chronic kidney disease with heart failure and stage 1 through stage 4 chronic kidney disease, or unspecified chronic kidney disease (principal); I50.33 Acute on chronic diastolic (congestive) heart failure; Z68.41 Body mass index [BMI] 40.0-44.9, adult; E87.2 Acidosis; R06.03 Acute respiratory distress; E03.9 Hypothyroidism, unspecified; E11.22 Type 2 diabetes mellitus with diabetic chronic kidney disease; E66.9 Obesity, unspecified; E78.00 Pure hypercholesterolemia, unspecified; E78.5 Hyperlipidemia, unspecified; F32.9 Major depressive disorder, single episode, unspecified; G25.81 Restless legs syndrome; I25.10 Atherosclerotic heart disease of native coronary artery without angina pectoris; N18.9 Chronic kidney disease, unspecified; Z82.49 Family history of ischemic heart disease and other diseases of the circulatory system; Z85.3 Personal history of malignant neoplasm of breast; Z90.11 Acquired absence of right breast and nipple; Z90.710 Acquired absence of both cervix and uterus; Z98.61 Coronary angioplasty status; M19.90 Unspecified osteoarthritis, unspecified site; Z90.49 Acquired absence of other specified parts of digestive tract; Z88.8 Allergy status to other drugs, medicaments and biological substances; Z20.822 Contact with and (suspected) exposure to COVID-19
CPT/HCPCS: 36415; 71275; 80048; 80053; 81001; 82553; 82962; 83605; 83735; 83880; 84100; 84439; 84443; 84481; 84484; 85025; 85379; 87086; 93005; 93306; 96361; 96374; 99285; J1650; J1815; J2060; J7030; Q9967; U0003; G0378

== ENCOUNTER → 2021-04-17 | Outpatient (CLI) | payer MEDICARE ==
[~2021-04-17] MED LIST changes: +EZET10TA48 PO; +MUPI22OI2 TP; +NEOM10DR32 AS; +VENL150C6 PO
--- NOTE | 2021-04-17 17:02 | CARD ---
MR#: [id number] Date of Study: 04/17/2021 Ordering Physician: CORI DINERO, Referring Physician: CORI DINERO, Tech: Eva Alvarez [facility] APPROVED REPORT EXAM: Two-dimensional and M-mode echocardiogram with Doppler and color Doppler. Other Information Quality : AverageHR: 84bpm Rhythm : NSR INDICATION Cardiac Disease: RISK FACTORS Hypertension Obesity Hyperlipidemia Diabetes 2D DIMENSIONS RVDd3.0 (2.9-3.5cm)Left Atrium(2D)4.3 (1.6-4.0cm) IVSd1.2 (0.7-1.1cm)Aortic Root(2D)3.0 (2.0-3.7cm) LVDd3.9 (3.9-5.9cm)LVOT Diameter2.1 (1.8-2.4cm) PWd1.0 (0.7-1.1cm)LVDs2.5 (2.5-4.0cm) FS (%) 36.2 %SV43.2 ml LVEF(%)66.5 (>50%) Aortic Valve AoV Peak Rah.127.4cm/sAoV VTI26.2cm AO Peak GR.6.5mmHgLVOT Peak Rah.76.4cm/s AO Mean GR.3mmHgAVA (VMAX)2.03cm2 Pulmonary Valve PV Peak Wbqtsunn816.0cm/s LEFT VENTRICLE The left ventricle is normal size. There is borderline to mild concentric left ventricular hypertroph y. The left ventricular systolic function is normal. Estimated ejection fraction 55-60%. There is no rmal LV segmental wall motion. The left ventricular diastolic function and filling is normal for age. RIGHT VENTRICLE The right ventricle is normal size. There is normal right ventricular wall thickness. The right ventr icular systolic function is normal. ATRIA The left atrium size is normal. The right atrium size is normal. The interatrial septum is intact wit h no evidence for an atrial septal defect or patent foramen ovale as noted on 2-D or Doppler imaging. AORTIC VALVE The aortic valve is normal in structure and function. Doppler and Color Flow revealed no significant aortic regurgitation. There is no significant aortic valvular stenosis. MITRAL VALVE The mitral valve is normal in structure and function. There is no evidence of mitral valve prolapse. There is no mitral valve stenosis. Doppler and Color-flow revealed trace to mild mitral regurgitation . TRICUSPID VALVE The tricuspid valve is normal in structure and function. Doppler and Color Flow revealed no tricuspid valve regurgitation noted. There is no tricuspid valve stenosis. PULMONIC VALVE The pulmonary valve is normal in structure and function. Doppler and Color Flow revealed mild pulmoni c valvular regurgitation. GREAT VESSELS The aortic root is normal in size. The ascending aorta is normal in size. The IVC is normal in size a nd collapses >50% with inspiration. PERICARDIAL EFFUSION There is no evidence of significant pericardial effusion. Critical Notification Critical Value: No <Conclusion> The left ventricular systolic function is normal. Estimated ejection fraction 55-60%. There is normal LV segmental wall motion. Trace to mild mitral regurgitation. There is no evidence of significant pericardial effusion. Signed by : Mitchel Rios, Electronically Approved : 04/17/2021 17:01:30
== END ==
LOC: ECHO 09:34
PROVIDERS: ATTEND Internal Medicine Cardiovascular Disease
DX: I08.8 Other rheumatic multiple valve diseases (principal); I25.10 Atherosclerotic heart disease of native coronary artery without angina pectoris
CPT/HCPCS: 93306

== ENCOUNTER → 2021-07-03 | Outpatient (CLI) | payer MEDICARE ==
[~2021-07-03] MED LIST changes: -DULO60CA6 PO; +DULO60CA7 PO
--- NOTE | 2021-07-03 09:22 | KCIC ---
EXAM: Brain MRI without contrast. HISTORY: Headaches. TECHNIQUE: Multiplanar, multisequence magnetic resonance imaging of the brain was performed without c ontrast. COMPARISON: None. FINDINGS: There is no restricted diffusion to suggest acute or subacute infarction. There is no susce ptibility effect to suggest hemorrhage. There is no mass effect or midline shift. There is no hydroce phalus. There are scattered areas of signal change within the cerebral white matter, likely due to chronic sm all vessel disease. There is cerebral volume loss. There is evidence of lens surgery. The paranasal sinuses are clear. There is minimal left mastoid flu id. There is no suspicious calvarial lesion. IMPRESSION: 1. No acute intracranial finding. 2. Bilateral cerebral white matter changes, most commonly due to chronic small vessel disease in demetrice ents of this age. 3. Mild age appropriate cerebral volume loss. Electronically signed by: Gillian Mccollum MD (07/03/2021 9:20 AM) [id number]
== END ==
LOC: KCIC MRI 07:59
PROVIDERS: ATTEND Family Medicine
DX: C50.912 Malignant neoplasm of unspecified site of left female breast (principal); R44.1 Visual hallucinations; R51.9 Headache, unspecified; I73.9 Peripheral vascular disease, unspecified
CPT/HCPCS: 70551